=== PATIENT | female | born 1945 | race Caucasian/White ===

== ENCOUNTER 2020-08-30 12:23 | Emergency (ER) | payer OTHER, SELFPAY ==
--- NOTE | ~2020-08-30 | XR_ITS ---
XR foot RT min 3V DATE: 08/30/2020 12:43 INDICATION: Right foot injury. Fifth metatarsal pain. TECHNIQUE: 4 views COMPARISON: None FINDINGS: There is diffuse osteopenia. There is a linear oblique nondisplaced fracture through the proximal shaft of the fifth metatarsal cipriano ne. There is no angulation. No other recent fracture or dislocation. IMPRESSION: Linear nondisplaced proximal fifth metatarsal shaft fracture Reviewed, dictated and finalized at location A. OLOGY CT TECHNOLOGIST
[2020-08-30 12:31] VITALS: BP 144/65; PULSE 61; RESP 16; TEMP 36.6; O2SAT 100
[2020-08-30 12:33] VITALS: BP 144/65; PULSE 61; RESP 16; TEMP 36.6; O2SAT 100
--- NOTE | 2020-08-30 12:45 | ED.GENADULT ---
HPI - General Adult General Chief complaint: Extremity Injury, Lower Stated complaint: rt foot injury Time Seen by Provider: 08/30/20 12:45 Source: patient and RN notes reviewed Mode of arrival: wheelchair Limitations: no limitations History of Present Illness HPI narrative: 74-year-old female presents with complaints of right foot pain and swelling for 1 day. Oralia reports sitting for a period of time last night causing foot to fall asleep and when she attempted to stand to walk RT foot inverted outward and she heard a popping noise. Tylenol (last at 10:30am today) without relief. Hurts to bear weight. No radiation of pain. No numbness, tingling, or loss of mobility. Exacerbating factor applying weight. Inability to bear weight due to pain. Denies discoloration. Denies suspect foreign body. LMP hysterectomy. The patient reports she have not been diagnosed with COVID-19. The patient reports she is not waiting for the results of a COVID-19 lab test. The patient reports she do not have fever, chills, weakness, or fatigue. The patient reports she do not have a new or worsening cough or shortness of breath. Denies chest pain. The patient reports she do not have any rhinorrhea, congestion, sore throat, loss of taste, nausea, vomiting, abdominal pain, and diarrhea. Tolerating po intake well. Denies recent traveling. Denies concerns for COVID-19 or exposures been home with limited outdoor exposure except for essential household needs and return home. At this time, patient is not suspected of having COVID-19. Some parts of this dictation were generated by voice recognition software and may contain typographical and/or grammatical inaccuracies. Related Data Home Medications Medication Instructions Recorded Confirmed fluticasone furoate-vilanterol INHALATION 08/30/20 [Breo Ellipta] Allergies Allergy/AdvReac Type Severity Reaction Status Date / Time sulfamethizole Allergy Unknown Verified 08/08/19 10:05 tetracycline Allergy Unknown Verified 08/08/19 10:05 trimethoprim Allergy Unknown Verified 08/08/19 10:05 Review of Systems Review of Systems: Narrative: CONSTITUTIONAL: Denies fever, chills, sweats. EYES: Denies visual changes, redness, discharge. ENT: Denies rhinorrhea, congestion, sore throat, otalgia. CARDIOVASCULAR: Denies chest pain, palpitations, edema. RESPIRATORY: Denies dyspnea, wheezing, cough. GASTROINTESTINAL: Denies abdominal pain, nausea, vomiting, diarrhea. SKIN: Denies rash or itching. MUSCULOSKELETAL: Denies acute back pain or myalgia. Complains of pain and swelling to right foot. NEUROLOGIC: Denies numbness or focal weakness. PSYCHIATRIC: Denies anxiety or depression. All other systems reviewed are negative, except as documented in HPI and below. [facility] Past Medical History Medical History Asthma H/O: pneumonia 2013, 2019 Osteoporosis Skin lesion follows with Dr Hu Surgical History Surgical History History of bladder suspension procedure History of hernia repair (~2004) History of partial hysterectomy (~1976) Family History Family History (Updated 08/30/20 @ 17:50 by ASHLYN Britt) Father Family history of coronary artery disease Carcinoma of colon Mother , MVC No problems noted. Social History Social History (Updated 08/30/20 @ 17:51 by ASHLYN Britt) Smoking status: Former smoker Tobacco type: cigarettes Second hand tobacco smoke exposure: Yes Smoking end date: 11/04/11 Alcohol intake: current Substance use: never Living arrangements: alone Occupation/Education: retired Gender identity (if verbalized by the patient): Female Sexual Orientation (if Verbalized by the Patient): Straight or Heterosexual Comments At time of signature, agree with nurse past medical, surgical, soci
== END 2020-08-30 13:19 | disposition home or self-care (01) ==
PROVIDERS: Emergency Provider Nurse Practitioner Family; PCP Nurse Practitioner Family
DX: S92.354A Nondisplaced fracture of fifth metatarsal bone, right foot, initial encounter for closed fracture (principal); X50.9XXA Other and unspecified overexertion or strenuous movements or postures, initial encounter; Z87.891 Personal history of nicotine dependence; J45.909 Unspecified asthma, uncomplicated; M81.0 Age-related osteoporosis without current pathological fracture
CPT/HCPCS: 73630; 99214; G0463

== ENCOUNTER → 2020-11-06 12:11 | Outpatient (CLI) | payer OTHER, SELFPAY ==
--- NOTE | ~2020-11-06 | DEXA_ITS ---
Bone Density Report Name: Oralia Kenny I Age: 75 Sex: Female Ethnicity: White Date of : 1945 Indication: postmenopausal osteoporosis; height loss; asthma or emphysema; hysterectomy; Referring Provider: Hazel Hernandez Study: Bone densitometry was performed. Exam Date: November 06, 2020 Accession number: [id number] Bone Density: Region BMD T-score Z-score Classification AP Spine (L1-L4) 0.797 -2.3 0.1 Osteopenia Femoral Neck (Left) 0.470 -3.4 -1.4 Osteoporosis Total Hip (Left) 0.563 -3.1 -1.4 Osteoporosis Femoral Neck (Right) 0.468 -3.4 -1.4 Osteoporosis Total Hip (Right) 0.526 -3.4 -1.7 Osteoporosis Total Hip Mean 0.545 -3.3 -1.6 Osteoporosis World Health Organization criteria for BMD impression classify patients as: Normal (T-score at or above -1.0), Osteopenia (T-score between -1.0 and -2.5), or Osteoporosis (T-score at or below -2.5). 10-year Fracture Risk: FRAX not reported because: Some T-score for Spine Total or Hip Total or Femoral Neck at or below -2.5 Previous Exams: Region Exam Age BMD T-score BMD Change BMD Change Date g/cm2 vs Baseline vs Previous AP Spine(L1-L4) 11/06/2020 75 0.797 -2.3 0.050* 0.039* 06/15/2018 72 0.759 -2.6 0.011 0.011 02/09/2016 70 0.748 -2.7 Total Hip(Left) 11/06/2020 75 0.563 -3.1 -0.037* -0.031* 06/15/2018 72 0.594 -2.8 -0.006 -0.006 02/09/2016 70 0.600 -2.8 Total Hip(Right) 11/06/2020 75 0.526 -3.4 -0.064* -0.035* 06/15/2018 72 0.560 -3.1 -0.029* -0.029* 02/09/2016 70 0.589 -2.9 *Denotes significance at 95% confidence level, LSC for AP Spine = 0.022 g/cm2, LSC for Total Hip = 0.027 g/cm2 Clinical Information Provided by Patient: Has used the following medications: Vitamin D, Calcium Has the following medical conditions: Asthma or Emphysema, Hysterectomy Patient maximum height was 64 Menopause Age: 31 No regular weight bearing exercise Drinks caffeinated beverages Onset of menses at age 14 Number of children 2 Impression: The patient has osteoporosis, based on the Right Total Hip T-score. The BMD for the Total Hip(Left) decreased, changing by -0.031 since the last DXA exam. The BMD for the Total Hip(Right) decreased, changing by -0.035 since the last DXA exam. Discussion: INCREASED RISK OF FRACTURE. BONE DENSITY IS UNDESIRABLY LOW AT ONE OR MORE SKELETAL SITES, CON
== END ==
PROVIDERS: PCP Nurse Practitioner Family; Visit Provider Nurse Practitioner Family
DX: Z78.0 Asymptomatic menopausal state (principal); M81.0 Age-related osteoporosis without current pathological fracture; M85.88 Other specified disorders of bone density and structure, other site
CPT/HCPCS: 77080

== ENCOUNTER 2020-12-09 13:18 | Outpatient (RCR) | payer OTHER, SELFPAY ==
--- NOTE | 2020-12-09 14:40 | PTOPEVAL ---
PHYSICAL THERAPY EVALUATION AND PLAN OF CARE 12-09-20 Thank you for referring Oralia Kenny to [facility].? Oralia is doing well with her R ankle and toe active ROM and was issued a home exercise program. She is independent with her home exercises, is to do them on her own and call for an appointment if additional therapy is needed, or if she has any questions. If there is a progression in her activity level at her next follow up appointment in January, please give her a new PT script. And she will call for an appointment. Her plan of treatment is for ? 0-1 x/week for 5 weeks. Please review, sign, date and return this plan of care MILAN. I agree with and certify that the following plan of care is medically necessary. Referring Physician Date Attending Provider: Shayne Olmedo MD PT Outpatient Evaluation Document 12/09/20 13:30 MARIA (Rec: 12/09/20 14:39 MARIA [id number]) Outpatient Past Medical History Past Medical History Source of Past Medical History Recalled from Previous Visit, Confirmed with Patient/Family Neurological History Hx Neurological Disorders No Significant History Cardiovascular History Hx Cardiac Disorders No Significant History Respiratory History Hx Asthma Yes: meds Gastrointestinal History Hx Hernia Yes: surgical repair, but having more issues with abdominal hernia Musculoskeletal History Hx Other Musculoskeletal Disorders Yes: osteoporosis Endocrine History Hx Endocrine Disorders No Significant History HEENT History Hx HEENT Disorders No Significant History Other History Hx Other Medical Conditions Yes: on antibiotic for infection of teeth-to have extract next week Evaluation Information Problem Diagnosis R non displaced proximal 5th metatarsal fracture Onset 08-29-20 Subjective Information to ER on 08-30-20: non Query Text:As Reported By Patient/ surgical; wore walking boot, Family used crutches, cane and now without assistive device, wear Darco hard sole shoe; have not had any PT or exercises for ankle/foot; injury to foot on 08-29-20: stood up from sitting and her R foot was asleep and it turned and popped; immediate pain. has osteoporosis and is supposed to get a bone stimulator to make her foot heal faster; pt thought she would get
--- NOTE | 2021-01-12 11:38 | PCPTNOTE ---
Addendum entered by Cassie Bravo, PT 01/12/21 11:40: ERROR: below entered by mistake Original Note: This treatment is being continued on visit number [id number]; Please see documentation on both accounts to view progress. Completed interventions, outcomes, and problems have been marked as Inactive to facilitate the copying of the Care plan routine for recurring accounts.
--- NOTE | 2021-01-26 13:59 | PCPTNOTE ---
PHYSICAL THERAPY DISCHARGE 01-26-21 Attending Provider: Shayne Olmedo MD Patient:Oralia Kenny Date of :1945 Ms. Kenny has not returned for any further treatments since the PT evaluation on 12/09/2020, for the diagnosis of R foot pain. Therefore she will be discharged at this time. The goals were not addressed. Thank you for referring this patient to [facility]. Please review, sign, date and return this discharge summary MILAN. I have been updated about the patient's current status and I agree with discharge from the above service at this time. Referring Physician Date
== END 2021-01-27 09:02 | disposition home or self-care (01) ==
LOC: ANHPT 13:18
PROVIDERS: PCP Nurse Practitioner Family; Visit Provider Orthopaedic Surgery
DX: S92.354D Nondisplaced fracture of fifth metatarsal bone, right foot, subsequent encounter for fracture with routine healing (principal)
CPT/HCPCS: 97161

== ENCOUNTER 2020-12-25 11:54 | Outpatient (CLI) | payer OTHER, SELFPAY ==
[2020-12-25 12:46] LABS: Hemoglobin 14.7 g/dL (12.0-15.0); Mean Corpuscular Hemoglobin 30.7 pg (26-34); Mean Platelet Volume 10.3 fl (7.4-10.4); Platelet Count Result 328 k/mm3 (150-375); Red Blood Count 4.79 M/mm3 (4.2-5.4); Red Cell Distribution Width 13.4 % (11.5-14.5); White Blood Count 9.2 K/mm3 (4.5-10.0)
[2020-12-25 12:54] LABS: Alanine Aminotransferase 16 U/L (4-35); Albumin Level 3.9 g/dL (3.5-5.1); Alkaline Phosphatase 74 U/L (38-126); Anion Gap 4 mmol/L (8-16); Aspartate Amino Transferase 15 U/L (14-36); Bilirubin,Total 0.6 mg/dL (0.2-1.3); Blood Urea Nitrogen 16 mg/dL (7-17); Calcium 8.9 mg/dL (8.4-10.2); Carbon Dioxide 32 mmol/L (22-30); Chloride 103 mmol/L (98-107); Estimated Glomerular Filt Rate > 60; Glucose 95 mg/dL (65-105); Potassium 4.7 mmol/L (3.4-5.0); Sodium 139 mmol/L (137-145)
[2020-12-25 13:06] LABS: Parathyroid Intact 73.5 pg/mL (7.5-53.5)
[2020-12-25 13:12] LABS: Free T4 Free Thyroxine 1.35 ng/mL (0.78-2.19); Vitamin D 25 Hydroxy 43.4 ng/mL
[2020-12-25 13:51] LABS: Total Triiodothyronine (T3) 1.32 NG/ML (0.97-1.69)
== END 2020-12-25 11:55 | disposition home or self-care (01) ==
LOC: ANHWCLAB 11:57
PROVIDERS: PCP Nurse Practitioner Family; Visit Provider Internal Medicine Endocrinology, Diabetes & Metabolism
DX: M81.0 Age-related osteoporosis without current pathological fracture (principal); J45.30 Mild persistent asthma, uncomplicated
CPT/HCPCS: 36415; 80053; 82306; 83970; 84100; 84439; 84443; 84480; 85027

== ENCOUNTER 2021-01-26 11:25 | Emergency (ER) | payer OTHER, SELFPAY ==
[2021-01-26 11:34] VITALS: BP 148/73; PULSE 82; RESP 16; TEMP 36.9; O2SAT 97
--- NOTE | 2021-01-26 12:05 | ED.URI ---
HPI - URI/Sore Throat General Chief Complaint: Upper Respiratory Infection Stated Complaint: hoarse/mucus/cough/sore throat/chest congestion Source: patient and RN notes reviewed Limitations: no limitations History of Present Illness HPI Narrative: The patient, ex-smoker/nondrinker, presents with sore throat. Patient states she has a shorter 1 to 2-day history of chills, and definite sore throat. She has had Covid immunization; no fever measured, earache, loss of taste/smell, CP, rash, S OB, vomiting. Symptoms are mild, worse when swallowing; no hoarseness, trismus, she does have minimal cough. Related Data Home Medications Medication Instructions Recorded Confirmed cholecalciferol (vitamin D3) 50 50 mcg PO DAILY 12/25/20 12/25/20 mcg (2,000 unit) capsule multivitamin 1 tablet PO DAILY 12/25/20 01/26/21 omega-3 fatty acids 1,000 mg 1,000 mg PO DAILY 12/25/20 01/26/21 capsule Allergies Allergy/AdvReac Type Severity Reaction Status Date / Time sulfamethizole Allergy Unknown Verified 08/08/19 10:05 tetracycline Allergy Unknown Verified 08/08/19 10:05 trimethoprim Allergy Unknown Verified 08/08/19 10:05 Review of Systems Review of Systems: Narrative: The patient has been informed that they may have pre-hypertension or Hypertension based on a BP reading in the department. I recommend that the patient call the primary care provider listed on their discharge instructions or a physician of their choice this week to arrange follow up for further evaluation of possible pre-hypertension or Hypertension General/Constitutional: No weight loss,fever Eyes: N0: Redness,discharge Ears/Nose/Throat: No: Epistaxis,ear discharge Respiratory: Denies: Hemoptysis Gastrointestinal: No Vomiting, Bleeding-rectal Skin: No Lumps, eruption Neurologic: No Focal Weakness,Sz Hematologic: Denies: Petechiae/Purpura Psychiatric: No: Suicida ideationl All Other Systems: Reviewed and Negative [facility] Past Medical History Medical History Asthma H/O: pneumonia 2013, 2019 Osteoporosis Skin lesion follows with Dr Hu Surgical History Surgical History History of bladder suspension procedure History of hernia repair (~2004) History of partial hysterectomy (~1976) Family History Family History (Updated 08/30/20 @ 17:50 by ASHLYN Britt) Father Family history of coronary artery disease Carcinoma of colon Mother , MVC No problems noted. Social History Social History (Updated 08/30/20 @ 17:51 by ASHLYN Britt) Smoking status: Former smoker Tobacco type: cigarettes Second hand tobacco smoke exposure: Yes Smoking end date: 11/04/11 Alcohol intake: current Substance use: never Gender identity (if verbalized by the patient): Female Comments At time of signature, agree with nursing past medical, surgical, social and family history. There is no relevant family history pertinent to the presenting complaint Exam Narrative: Exam Narrative: General Appearance: Well appearing, Well nourished EYE: PERRLA, Conjunctiva clear Ears: Auditory canal normal, TM nl Nose: Rhinorrhea, Mucousal erythema Mouth/Throat: MM moist, Uvula midline, Pharyngeal erythema Neck: Supple, No adenopathy Respiratory: No respiratory distress, airway patent Cardiovascular: RRR, Musculoskeletal: Normal strength Skin: Warm, Dry Neurological: A&O x3, CN II-XII intact Psychiatric: Normal mood, Normal affect Course Vital Signs Vital signs: Vital Signs Temperature 98.5 F 01/26/21 11:34 Pulse Rate 82 01/26/21 11:34 Respiratory Rate 16 01/26/21 11:34 Blood Pressure 148/73 H 01/26/21 11:34 Pulse Oximetry 97 01/26/21 11:34 Temperature 98.5 F 01/26/21 11:34 Pulse Rate 82 01/26/21 11:34 Respiratory Rate 16 01/26/21 11:34 Blood Pres
== END 2021-01-26 12:22 | disposition home or self-care (01) ==
PROVIDERS: Emergency Provider Emergency Medicine; PCP Nurse Practitioner Family
DX: J02.9 Acute pharyngitis, unspecified (principal); Z87.891 Personal history of nicotine dependence; J45.909 Unspecified asthma, uncomplicated; M81.0 Age-related osteoporosis without current pathological fracture; Z90.711 Acquired absence of uterus with remaining cervical stump
CPT/HCPCS: 87081; 87880; 99213; G0463

== ENCOUNTER → 2021-01-29 07:00 | Outpatient (CLI) | payer OTHER, SELFPAY ==
[2021-01-30 14:59] LABS: SARS-CoV-2 RNA PCR Negative
== END ==
PROVIDERS: PCP Family Medicine; Visit Provider Emergency Medicine
DX: J02.9 Acute pharyngitis, unspecified (principal); Z20.822 Contact with and (suspected) exposure to COVID-19
CPT/HCPCS: C9803; U0003; U0005

== ENCOUNTER 2021-01-29 19:04 | Emergency (ER) | payer OTHER, SELFPAY ==
[2021-01-29 19:20] VITALS: BP 146/73; PULSE 79; RESP 18; TEMP 36.4; O2SAT 94
[2021-01-29] MEDS: FLUORESCEIN SOD 1 MG/STRIP (19:43)
[2021-01-29] MEDS: TETRACAINE HCL 0.5% OPHTH SOLN 4 ML BTL 2 DROP EACH EYE (19:43)
--- NOTE | 2021-01-29 20:05 | ED.EYEPROB ---
HPI - Eye Problem General Chief complaint: Eye Problems Stated complaint: ?Foreign Body R Eye Time Seen by Provider: 01/29/21 19:33 Source: patient Mode of arrival: ambulatory Limitations: no limitations History of Present Illness HPI Narrative: Patient complaining of right eye irritation and pain after something flew in my right eye while she was using a blower outside her yard. Patient denies any other pain or injuries. Related Data Home Medications Medication Instructions Recorded Confirmed cholecalciferol (vitamin D3) 50 50 mcg PO DAILY 12/25/20 12/25/20 mcg (2,000 unit) capsule multivitamin 1 tablet PO DAILY 12/25/20 01/26/21 omega-3 fatty acids 1,000 mg 1,000 mg PO DAILY 12/25/20 01/26/21 capsule Allergies Allergy/AdvReac Type Severity Reaction Status Date / Time sulfamethizole Allergy Unknown Unknown Verified 01/29/21 19:25 tetracycline Allergy Unknown Unknown Verified 01/29/21 19:25 trimethoprim Allergy Unknown Unknown Verified 01/29/21 19:25 Review of Systems Review of Systems: All systems reviewed & are unremarkable except as noted in HPI and below PMFSH Past Medical History Medical History Asthma H/O: pneumonia 2013, 2019 Osteoporosis Skin lesion follows with Dr Hu Surgical History Surgical History History of bladder suspension procedure History of hernia repair (~2004) History of partial hysterectomy (~1976) Family History Family History Father Family history of coronary artery disease Carcinoma of colon Mother , MVC No problems noted. Social History Social History Smoking status: Former smoker Tobacco type: cigarettes Second hand tobacco smoke exposure: Yes Smoking end date: 11/04/11 Alcohol intake: current Substance use: never Gender identity (if verbalized by the patient): Female Exam Const: General: no acute distress and alert Orientation/consciousness: patient oriented x3 HENMT: Head: normal to inspection and no lacerations Ears: external ears normal General nose exam: Normal external nose present, no nasal discharge noted and no epistaxis Face and sinus: normal facial exam and sinuses tender Mouth: Yes lip normal and Yes moist mucous membranes Eyes: Pupils: Equal, round and reactive pupils present EOM: EOMs intact bilaterally Other: Positive for corneal abrasion right eye Neck: Neck: normal visual inspection Resp: Effort & Inspection: normal respiratory effort Skin: General skin exam: normal color Rashes: no rashes Neuro: General: patient oriented x3 and moves all extremities Course Vital Signs Vital signs: Vital Signs Temperature 36.4 C 01/29/21 19:20 Pulse Rate 79 01/29/21 19:20 Respiratory Rate 18 01/29/21 19:20 Blood Pressure 146/73 H 01/29/21 19:20 Pulse Oximetry 94 01/29/21 19:20 Temperature 36.4 C 01/29/21 19:20 Pulse Rate 79 01/29/21 19:20 Respiratory Rate 18 01/29/21 19:20 Blood Pressure 146/73 H 01/29/21 19:20 Pulse Oximetry 94 01/29/21 19:20 MDM - Eye Problem Differential Diagnosis Differential diagnosis: Likely corneal abrasion and conjunctivitis Discharge Plan Discharge Clinical Impression: Corneal abrasion Qualifiers: Encounter type: initial encounter Laterality: right Qualified Code(s): S05.01XA - Injury of conjunctiva and corneal abrasion without foreign body, right eye, initial encounter Patient Disposition: Home, Self-Care Condition: Improved Instructions: Corneal Abrasion (DC) Prescriptions: New erythromycin 5 mg/gram (0.5 %) ointment 1 applic RIGHT EYE 6XD Qty: 3.5 RF: 0 No Action azithromycin 250 mg tablet See Rx Instructions .ROUTE .COMPLEX Qty: 6 RF: 0 Lidocaine Viscous 2 % solution
[2021-01-29] MEDS: TETANUS,DIPHTHERIA,AC PERTUSSIS ADULT (0.5 ML) BOOSTRIX IM (20:16)
[2021-01-29] MEDS: ERYTHROMYCIN OPHTH OINTMENT 1 GM TUBE 1 APPLIC EACH EYE (20:17)
== END 2021-01-29 21:06 | disposition home or self-care (01) ==
PROVIDERS: Emergency Provider Emergency Medicine; PCP Family Medicine
DX: S05.01XA Injury of conjunctiva and corneal abrasion without foreign body, right eye, initial encounter (principal); J45.909 Unspecified asthma, uncomplicated; M81.0 Age-related osteoporosis without current pathological fracture; Z87.891 Personal history of nicotine dependence; Z23 Encounter for immunization; W20.8XXA Other cause of strike by thrown, projected or falling object, initial encounter
CPT/HCPCS: 90471; 90715; 99283; A9270; C9803; U0003; U0005

== ENCOUNTER 2021-02-18 11:52 | Outpatient (CLI) | payer OTHER, SELFPAY ==
[2021-02-18 13:30] LABS: Parathyroid Intact 122.1 pg/mL (7.5-53.5)
[2021-02-18 13:36] LABS: Vitamin D 25 Hydroxy 41.1 ng/mL
== END 2021-02-18 11:53 | disposition home or self-care (01) ==
PROVIDERS: PCP Family Medicine; Visit Provider Internal Medicine Endocrinology, Diabetes & Metabolism
DX: M81.0 Age-related osteoporosis without current pathological fracture (principal); E55.9 Vitamin D deficiency, unspecified
CPT/HCPCS: 36415; 82306; 83970

== ENCOUNTER 2021-06-12 13:39 | Outpatient (CLI) | payer OTHER, SELFPAY ==
--- NOTE | 2021-06-15 11:49 | WPDPFTINT ---
PFT Procedure Performed PFT Procedure Performed Spirometry with Pre/Post Bronchodilator Plethysmography (Lung Vol) Diffusing Cap (DLCO) Flow Vol Loop PFT Interpretation This is a pulmonary function test with pre and post-bronchodilator spirometry, plethysmography and diffusing capacity. The test was performed and results interpreted in accordance with the 2019 and 2005 ATS/ERS Task Force guidelines respectively using the Global Lung Function Initiative-2012 reference equations. Patient demonstrated good effort and cooperation. Reproducibility criteria were met. The quality of the pre bronchodilator spirometry maneuver was Grade A and post bronchodilator spirometry maneuver was Grade A. Findings: Spirometry: There is decreased maximal expiratory airflow at all lung volumes with concave expiratory flow tracing. The contour the inspiratory flow tracing is normal. The pre bronchodilator FVC is 1.86 L, 74% predicted. The pre bronchodilator FEV1 is 0.78 L, 40% predicted. The FEV1: FVC ratio is 42%. The post bronchodilator FVC is 2.03 L, representing a 9% increase. The post bronchodilator FEV1 is 0.96 L, representing 180 mL increase or a 23% increase. Plethysmography: The total lung capacity is 5.30 L, 112% predicted. The functional residual capacity is 4.08 L, 151% predicted. The residual volume is 3.41 L, 158% predicted. Diffusing capacity: The absolute diffusion capacity is 9.9, 51% predicted. The diffusing capacity corrected for alveolar volume is 3.95, 92% predicted. Impression: There is a severe obstructive abnormality without significant improvement after inhaling a single dose of albuterol as the absolute increase in FEV 1 was <200 ml. The increase in residual volume is consistent with air trapping from an obstructive abnormality. Hyperinflation is present is demonstrated by the increase in functional residual capacity and is consistent with an obstructive abnormality. The absolute diffusing capacity is moderately decreased and normalizes when corrected for alveolar volume. There are no prior studies for comparison
== END 2021-06-12 13:40 | disposition home or self-care (01) ==
PROVIDERS: PCP Family Medicine; Visit Provider Internal Medicine Critical Care Medicine
DX: J45.30 Mild persistent asthma, uncomplicated (principal); R94.2 Abnormal results of pulmonary function studies
CPT/HCPCS: 94060; 94726; 94729

== ENCOUNTER → 2022-02-18 13:30 | Outpatient (CLI) | payer OTHER, SELFPAY ==
--- NOTE | ~2022-02-18 | CT_ITS ---
EXAMINATION: CT lung screening DATE: 02/18/2022 14:04 INDICATION: Personal history of tobacco dependence. Lung cancer screening. TECHNIQUE: Computed tomography (CT) of the chest was performed without intravenous contrast. The dose -length product was 104.69 mGy-cm. Automated exposure control and iterative reconstruction technique were employed. COMPARISON: None FINDINGS: Heart size normal. There is atherosclerosis of the aorta and coronary arteries. Heart size normal. Moderate size hiatal hernia. No thoracic lymphadenopathy. There are bilateral breast implants which are partially calcified. Upper abdomen is unremarkable. There is an 8 mm nodule in the left up per lobe medially, axial image 39 there is emphysema. There is a 1.4 cm lingular nodule, axial image 70. There is an irregular nodular density in the right middle lobe which has a linear configuration, most likely atelectasis/scarring. There are additional reticulonodular densities in the right middle lobe measuring 5 mm or less. There are reticulonodular densities in the right upper lobe laterally wi th tree-in-bud configuration, possibly infectious/inflammatory. No pneumothorax. No endobronchial les ions. There is mild thoracic spondylosis with accentuated kyphosis. No focal lytic or blastic lesions . IMPRESSION: 1. Lung Rads Category 4A: Recommend follow-up [address] chest or PET/CT scan for f urther assessment. Reviewed, dictated and finalized at location B. IMPRESSION: 1. Lung Rads Category 4A: Recommend follow-up 3 month interval low dose CT ches t or PET/CT scan for further assessment.
== END ==
PROVIDERS: PCP Family Medicine; Visit Provider Nurse Practitioner Family
DX: Z12.2 Encounter for screening for malignant neoplasm of respiratory organs (principal); Z87.891 Personal history of nicotine dependence
CPT/HCPCS: 71271

== ENCOUNTER 2022-06-26 23:09 | Inpatient (IN) | payer OTHER, SELFPAY ==
--- NOTE | ~2022-06-26 | XR_ITS ---
XR hip RT 2V w AP pelvis 06/27/2022 00:43 Indication: Right hip pain after fall Procedure: 3 views right hip Comparison: 05/09/2004 Findings: There is a nondisplaced right femoral intertrochanteric fracture. Normal mineralization. Mi ld osteitis pubis. Mild osteoarthritis of the hips. Impression: 1: Nondisplaced right femoral intertrochanteric fracture. Reviewed, dictated and finalized at location A. Impression: 1: Nondisplaced right femoral intertrochanteric fracture.
--- NOTE | ~2022-06-26 | XR_ITS ---
XR knee RT 3V 06/27/2022 00:43 Indication: Right knee pain after fall Procedure: 3 views right knee Comparison: 01/24/2008 Findings: There is moderate tricompartment osteoarthritis. No fracture, subluxation or dislocation. N o significant joint effusion. Osteopenia. Impression: 1: No acute fracture. Reviewed, dictated and finalized at location A. Impression: 1: No acute fracture.
--- NOTE | ~2022-06-26 | XR_ITS ---
EXAMINATION: XR surgery orthopedic DATE: 06/28/2022 18:49 INDICATION: Intertrochanteric fracture the right femur for intertrochanteric nailing TECHNIQUE: 4 fluoroscopic images of the right hip and proximal femur were obtained during procedure p erformed by Dr. Ca. Radiologist was not present for the imaging or procedure. The amount of fluo roscopy time used during this procedure was 2.6 minutes. COMPARISON: 06/26/2022 FINDINGS: Reduction and internal fixation of the previously noted intertrochanteric fracture the proximal right femur. The fracture is fixed with an antegrade intramedullary daniel with femoral neck dynamic compress ion screw and distal interlocking screw. Alignment is now essentially anatomic. No new fractures iden tified. Mild right hip osteoarthritis. IMPRESSION: 1. Essentially anatomic alignment post open reduction internal fixation of an intratrochanteric fract ure of the proximal femur. Reviewed, dictated and finalized at location A. IMPRESSION: 1. Essentially anatomic alignment post open reduction internal fixation of an i ntratrochanteric fracture of the proximal femur.
[2022-06-26 23:11] VITALS: BP 155/76; PULSE 67; RESP 18; TEMP 36.6; O2SAT 96
--- NOTE | 2022-06-26 23:50 | ED.GENADULT ---
HPI - General Adult General Chief complaint: Fall Stated complaint: GLF with Right hip pain Time Seen by Provider: 06/26/22 23:21 History of Present Illness HPI narrative: Patient is 76-year-old female who presents the emergency department with chief complaint of right hip pain. Patient reports that she was walking through her house in her flip-flops and she fell on the floor. Patient reports pain in her right hip reports that her leg is shortened and rotated. Patient denies head injury denies loss of consciousness patient denies being on any anticoagulants. Related Data Home Medications Medication Instructions Recorded Confirmed cholecalciferol (vitamin D3) 50 50 mcg PO DAILY 12/25/20 02/25/22 mcg (2,000 unit) capsule multivitamin 1 tablet PO DAILY 12/25/20 02/25/22 omega-3 fatty acids 1,000 mg 1,000 mg PO DAILY 12/25/20 02/25/22 capsule (Fish Oil Concentrate) Allergies Allergy/AdvReac Type Severity Reaction Status Date / Time sulfamethizole Allergy Mild Other Verified 02/25/22 11:45 tetracycline Allergy Mild Swelling Verified 02/25/22 11:45 of Lip/Tongue/Throat trimethoprim Allergy Unknown Other Verified 02/25/22 11:45 Review of Systems Review of Systems: A 10 system review of systems was completed on the patient and is negative except for what is stated in the HPI. Nursing and ancillary documentation was reviewed. [facility] Past Medical History Medical History Asthma Environmental allergies H/O: pneumonia 2013, 2018 Hiatal hernia with GERD without esophagitis History of tobacco abuse Hypovitaminosis D Normocalcemic primary hyperparathyroidism Osteoporosis Skin lesion follows with Dr Hu Surgical History Surgical History History of bladder suspension procedure (~2011) History of hernia repair (~2004) History of partial hysterectomy (~1976) History of repair of hiatal hernia (~2004) Family History Family History Father Family history of coronary artery disease Carcinoma of colon Mother , MVC No problems noted. Social History Social History Smoking packs per day: 1 Smoking cigarettes per day: 20.0 Years smoked: 20 Smoking pack-years: 20.00 Smoking status: Former smoker Tobacco type: cigarettes Second hand tobacco smoke exposure: Yes Smoking end date: 11/04/11 Alcohol intake: current Substance use: never Gender identity (if verbalized by the patient): Female Sexual Orientation (if Verbalized by the Patient): Straight or Heterosexual Exam Narrative: GENERAL: Well-appearing, well-nourished, and in no acute distress. HEAD: Normocephalic, atraumatic. EYES: PERRLA and EOMI. ENT: Nares clear, no rhinorrhea or epistaxis. Mucous membranes moist. NECK: Supple. CHEST: Clear to auscultation. No respiratory distress. HEART: Regular rate and rhythm. No murmur heard. Normal peripheral pulses. ABDOMEN: Soft, nontender, nondistended, normal active bowel sounds. EXTREMITIES: Decreased range of motion of the right lower extremity the leg is shortened and externally rotated. No edema. SKIN: Warm, dry, no rash. NEURO: No focal deficits. Alert and oriented x3. PSYCH: Normal mood and affect. Course Vital Signs Vital signs: Vital Signs Temperature 36.6 C 06/26/22 23:11 Pulse Rate 67 06/26/22 23:11 Respiratory Rate 18 06/26/22 23:11 Blood Pressure 155/76 H 06/26/22 23:11 Pulse Oximetry 96 06/26/22 23:11 Oxygen Delivery Room Air 06/26/22 23:11 Temperature 36.6 C 06/26/22 23:11 Pulse Rate 67 06/26/22 23:11 Respiratory Rate 18 06/26/22 23:11 Blood Pressure 155/76 H 06/26/22 23:11 Pulse Oximetry 96 06/26/22 23:11 Oxygen Delivery Room Air 06/26/22 23:1
[2022-06-26] MEDS: ONDANSETRON INJ 4 MG/2 ML VIAL IV PUSH (23:51)
[2022-06-26] MEDS: MORPHINE SULFATE (*CRX) 4 MG/ML INJ IV PUSH (23:52)
[2022-06-27 00:11] LABS: Basophils Percent Auto 0.4 % (0.2-1.2); Eosinophils Absolute Auto 0.1 K/mm3 (0-0.3); Eosinophils Percent Auto 0.9 % (0-4.4); Hematocrit 41.3 % (37.0-47.0); Hemoglobin 12.9 g/dL (12.0-15.0); Immature Granulocyte Absolute 0.06 K/mm3 (0.00-0.031); Immature Granulocyte Percent A 0.6 % (0-0.5); Lymphocytes Absolute Auto 1.87 K/mm3 (0.9-3.2); Lymphocytes Percent Auto 18.2 % (18.3-44.2); Mean Corpuscular HGB Conc 31.2 g/dl (32-36); Mean Corpuscular Hemoglobin 30.5 pg (26-34); Mean Corpuscular Volume 97.6 fl (80-100); Mean Platelet Volume 10.5 fl (7.4-10.4); Monocytes Absolute Auto 0.8 K/mm3 (0.1-0.6); Monocytes Percent Auto 7.5 % (2.6-8.5); Neutrophils Absolute Auto 7.5 K/mm3 (1.3-6.7); Neutrophils Percent Auto 72.4 % (45.5-73.1); Platelet Count Result 264 k/mm3 (150-375); Red Blood Count 4.23 M/mm3 (4.2-5.4); Red Cell Distribution Width 13.7 % (11.5-14.5); White Blood Count 10.3 K/mm3 (4.5-10.0)
[2022-06-27 00:12] LABS: Alanine Aminotransferase 18 U/L (6-35); Alkaline Phosphatase 60 U/L (38-126); Anion Gap 9 mmol/L (8-16); Aspartate Amino Transferase 15 U/L (14-36); Bilirubin,Total 0.4 mg/dL (0.2-1.3); Blood Urea Nitrogen 21 mg/dL (7-17); Calcium 8.4 mg/dL (8.4-10.2); Carbon Dioxide 30 mmol/L (22-30); Chloride 101 mmol/L (98-107); Estimated CRCL calculation 60 ml/min; Estimated Glomerular Filt Rate > 60; Glucose 114 mg/dL (65-110); Potassium 3.6 mmol/L (3.4-5.0); Sodium 140 mmol/L (137-145)
[2022-06-27] MEDS: MORPHINE SULFATE (*CRX) 4 MG/ML INJ IV PUSH ×7 (01:50→21:21)
[2022-06-27] MEDS: ONDANSETRON INJ 4 MG/2 ML VIAL IV PUSH ×3 (01:50→08:45)
[2022-06-27] MEDS: SODIUM CHLORIDE 0.9% IV 1,000 ML 125 ML IV CONT ×2 (01:50→11:15)
--- NOTE | 2022-06-27 02:00 | PC.NURSE ---
pt unable to provide urine sample at this time
[2022-06-27 02:39] LABS: SARS-CoV-2 RNA PCR Negative
[2022-06-27] MEDS: HYDROmorphone HCL INJ (*CRX) 1 MG/ML SYR IV PUSH (02:46)
--- NOTE | 2022-06-27 02:56 | PM.IMHP ---
H&P: HPI History of Present Illness Date/Time: 06/27/22 02:56 Chief Complaint: fall PMFSH Past Medical History Medical History Asthma Environmental allergies H/O: pneumonia 2013, 2019 Hiatal hernia with GERD without esophagitis History of tobacco abuse Hypovitaminosis D Normocalcemic primary hyperparathyroidism Osteoporosis Skin lesion follows with Dr Hu Surgical History Surgical History History of bladder suspension procedure (~2011) History of hernia repair (~2004) History of partial hysterectomy (~1976) History of repair of hiatal hernia (~2004) Family History Family History (Updated 06/27/22 @ 03:58 by John Pineda RN) Father Family history of coronary artery disease Carcinoma of colon Mother , MVC No problems noted. Other Breast cancer Social History Social History Smoking packs per day: 1 Smoking cigarettes per day: 20.0 Years smoked: 40 Smoking pack-years: 40.00 Smoking status: Former smoker Tobacco type: cigarettes Second hand tobacco smoke exposure: Yes Smoking end date: 11/04/11 Alcohol intake: never Substance use: never Gender identity (if verbalized by the patient): Female Sexual Orientation (if Verbalized by the Patient): Straight or Heterosexual Spiritual care concerns: No Meds Home Medications and Allergies Home Medications Medication Instructions Recorded Confirmed Type cholecalciferol (vitamin D3) 50 50 mcg PO DAILY 12/25/20 06/27/22 History mcg (2,000 unit) capsule multivitamin 1 tablet PO DAILY 12/25/20 06/27/22 History omega-3 fatty acids 1,000 mg 1,000 mg PO DAILY 12/25/20 06/27/22 History capsule (Fish Oil Concentrate) albuterol sulfate 0.63 mg/3 mL 0.63 mg (3 mL) inhalation Q4-6H 04/24/21 06/27/22 Rx solution for nebulization PRN shortness of breath or wheezing 1 month #75 mL fluticasone propionate 50 1 spray intranasal DAILY #16 grams 02/03/22 06/27/22 Rx mcg/actuation nasal spray,suspension famotidine 20 mg tablet 20 mg PO DAILY #180 tabs 02/25/22 06/27/22 Rx montelukast 10 mg tablet See Rx Instructions .Route 05/10/22 06/27/22 Rx .COMPLEX #90 tabs Allergies Allergy/AdvReac Type Severity Reaction Status Date / Time sulfamethizole Allergy Mild Other Verified 06/27/22 03:53 tetracycline Allergy Mild Swelling Verified 06/27/22 03:53 of Lip/Tongue/Throat trimethoprim Allergy Unknown Other Verified 06/27/22 03:53 Vital Signs Vital Signs - 24 hr 06/26/22 23:11 Temperature 97.8 F Pulse Rate 67 Respiratory Rate 18 Blood Pressure 155/76 H Pulse Oximetry 96 Oxygen Delivery Room Air H&P: Results Labs Labs: Short CBC 06/26/22 Range/Units 23:56 WBC 10.3 H (4.5-10.0) K/mm3 Hgb 12.9 (12.0-15.0) g/dL Hct 41.3 (37.0-47.0) % Plt Count 264 (150-375) k/mm3 BMP 06/26/22 23:56 Sodium 140 Potassium 3.6 Chloride 101 Carbon Dioxide 30 BUN 21 H Creatinine 0.70 Glucose 114 H Calcium 8.4 Liver Function 06/26/22 Range/Units 23:56 Total Bilirubin 0.4 (0.2-1.3) mg/dL AST 15 (14-36) U/L ALT 18 (6-35) U/L Alkaline Phosphatase 60 (38-126) U/L Albumin 4.0 (3.5-5.1) g/dL Assessment and Plan Assessment and plan (1) Closed intertrochanteric fracture of right femur: Code(s): S72.141A - Displaced intertrochanteric fracture of right femur, initial encounter for closed fracture Status: Acute (2) Asthma: Qualifiers: Asthma severity: mild Asthma persistence: persistent Asthma complication type: uncomplicated Qualified Code(s): J45.30 - Mild persistent asthma, uncomplicated Code(s): J45.909 - Unspecified asthma, uncomplicated Status: Acute (3) Osteoporosis: Code(s): M81.0
[2022-06-27 03:29] LABS: Appearance Urine Clear (Clear); Bilirubin Urine Negative (Negative); Color Urine Yellow (Yellow); Glucose Urine UA Negative (Negative); Ketones Urine Negative (Negative); Leukocyte Esterase Ur Negative LEU/UL (Negative); Nitrate Urine Negative (Negative); Protein Urine Negative (Negative); Specific Grav Ur >= 1.030 (1.001-1.035); Urobilinogen Urine 0.2 mg/dL (<2.0)
[2022-06-27 03:34] LABS: Mucus Urine Rare /lpf; WBC Urine 0-3 /hpf
--- NOTE | 2022-06-27 03:40 | ADMGEN ---
This patient, Oralia Kenny, was admitted to [facility] Room 322-02. Patient/family oriented to hospital policies and general routines including ID bracelet, bed and alarms, visiting hours, pain management, procedures, bathroom and other care routines, personal items, smoking policy, room service/diet, and visiting hours. Information on how to activate the Rapid Response Team has been discussed. Patient/Family are encouraged to report perceived risks to care and to ask questions if they do not understand what they are told or what they should do.
[2022-06-27 03:49] VITALS: BP 109/54; PULSE 67; RESP 20; TEMP 36.5; O2SAT 96; BMI 34.2
[2022-06-27 03:53] LABS: Add Urine Microscopic? YES; Blood Urine Trace (Negative)
[2022-06-27 06:00] VITALS: BP 109/56; PULSE 60; RESP 20; TEMP 36.4; O2SAT 98
--- OUTSIDE RECORDS SUMMARY | 2022-06-27 08:54 | XMS_ITS ---
:1945 Author Care Team Providers Name Role Phone DR. FRANCISCO RYAN Primary Care Provider [phone] FRANCISCO RYAN Referring Provider [phone] Allergies Code Code System Name Reaction Severity Status Onset 53102 RxNorm Tetracycline ? ? Active ? Medications Name Status Start Date Stop Date ? ? acetaminophen 300 mg-codeine 30 mg tablet Completed ? 02/18/2021 TAKE 1 TO 2 TABLETS BY MOUTH EVERY 4 TO 6 HOURS NEEDED NO MORE THAN 10 TABLETS PER DAY albuterol sulfate 2.5 mg/3 mL (0.083 %) solution for nebulizatio n Completed ? 10/06/2020 Inhale 3 mL 3 times a day by nebulization route. albuterol sulfate HFA 90 mcg/actuation aerosol Active ? Not available inhaler alendronate 70 mg tablet Completed ? 021 TAKE 1 TABLET BY MOUTH ONCE WEEKLY azithromycin 250 mg tablet Completed ? 02/18 Breo Ellipta 100 mcg-25 mcg/dose powder for Active ? Not available inhalation cephalexin 500 mg capsule Completed ? 2020 TAKE 1 CAPSULE BY MOUTH EVERY 6 HOURS ergocalciferol (vitamin D2) 1,250 mcg (50,000 unit) capsule Comp leted ? 01/02/2021 TAKE 1 CAPSULE BY MOUTH ONE TIME PER WEEK erythromycin 5 mg/gram (0.5 %) eye ointment Completed ? 02/18/2021 Fluzone High-Dose 2014-15 (PF) 180 mcg/0.5 mL intramuscular syri nge Unknown ? Not available TO BE ADMINISTERED BY PHARMACIST FOR IMMUNIZATION Fluzone High-Dose Quad 2019- (PF) 240 mcg/0.7 mL IM syringe Co mpleted ? 11/07/2020 PHARMACY ADMINISTERED ibuprofen 600 mg tablet Active ? Not avai lable TAKE 1 TABLET BY MOUTH FOUR TIMES DAILY NEEDED FOR PAIN ipratropium bromide 0.02 % solu
--- OUTSIDE RECORDS SUMMARY | 2022-06-27 08:54 | XMS_ITS ---
:1945 Author Care Team Providers Name Role Phone DR. FRANCISCO RYAN Primary Care Provider [phone] FRANCISCO RYAN Referring Provider [phone] Allergies Code Code System Name Reaction Severity Status Onset 68790 RxNorm Tetracycline ? ? Active ? Medications Name Status Start Date Stop Date ? ? albuterol sulfate 2.5 mg/3 mL (0.083 %) solution for nebulizatio n Completed ? 10/06/2020 Inhale 3 mL 3 times a day by nebulization route. albuterol sulfate HFA 90 mcg/actuation aerosol inhaler Active ? Not available Breo Ellipta 100 mcg-25 mcg/dose powder for inhalation Completed ? 10/24/2020 ergocalciferol (vitamin D2) 1,250 mcg (50,000 unit) capsule Acti ve ? Not available TAKE 1 CAPSULE BY MOUTH ONE TIME PER WEEK Fluzone High-Dose (PF) 180 mcg/0.5 mL intramuscular syri nge Unknown ? Not available TO BE ADMINISTERED BY PHARMACIST FOR IMMUNIZATION Fluzone High-Dose Quad (PF) 240 mcg/0.7 mL IM syringe Co mpleted ? 11/07/2020 PHARMACY ADMINISTERED ibuprofen 600 mg tablet Completed ? 11/07/19 21 Mucinex Completed ? 09/03/2020 Pneumovax-23 25 mcg/0.5 mL injection syringe Completed ? 11/07/2020 Problems Name Status Onset Date Source ? Pneumonia Active ? Encounter Bronchitis Active ? Encounter Procedures Date Name Performed by ? 10/03/2010 Kidney/Bladder Surgery Information not a vailable 10/03/2002 Hernia Repair Information not avai lable 09/01/2014 X-ray, Chest, 2 View [facility] (Imaging) [address] [place], [place] [address] ([address])
--- NOTE | 2022-06-27 12:19 | PM.IMPN ---
Progress Note: A&P Assessment and Plan (1) Closed intertrochanteric fracture of right femur: Code(s): S72.141A - Displaced intertrochanteric fracture of right femur, initial encounter for closed fracture Status: Acute Assessment and Plan: - p.r.n. pain control - p.r.n. antiemetics - complete bedrest - fall precautions - consult orthopedic surgery - maintain NPO status - IV fluids of normal saline at 125 mL/hour - maintain Savage catheter to gravity - monitor labs and vital sign (2) Asthma: Qualifiers: Asthma severity: mild Asthma persistence: persistent Asthma complication type: uncomplicated Qualified Code(s): J45.30 - Mild persistent asthma, uncomplicated Code(s): J45.909 - Unspecified asthma, uncomplicated Status: Acute Assessment and Plan: - p.r.n. albuterol (3) Osteoporosis: Code(s): M81.0 - Age-related osteoporosis without current pathological fracture Status: Acute Assessment and Plan: - likely contributing factor to Her acute fracture today. - Continue vitamin-D (4) Hiatal hernia with GERD without esophagitis: Code(s): K44.9 - Diaphragmatic hernia without obstruction or gangrene; K21.9 - Gastro-esophageal reflux disease without esophagitis Status: Acute Assessment and Plan: - continue Pepcid when no longer NPO. - Add Protonix IV. Time Spent With Patient Time with patient: 15 - 25 minutes Subjective Date/time seen: 06/27/22 1015 This patient was examined at the bedside today in interval assessment following admission to the hospital after sustaining a ground level fall at home that was mechanical in nature as she was wearing flip-flops through her home and tripped on the edge of a rug that was on her hardwood floor. She denies any head injury in the fall and did not have any loss of consciousness, however in the fall she sustained a fracture of the right hip. Workup in the ED was significant for a nondisplaced right femoral inter trochanteric fracture. She was admitted to the hospital for pain control and expert orthopedic surgery consult for definitive plan of care development. Currently the patient is in exquisite pain. The pain is of its highest intensity in the right groin. She is nauseated requiring the addition of a 2nd antiemetic medication. She has no chest pain, dyspnea, diarrhea, headache, lightheadedness, dizziness. We are awaiting the evaluation and recommendations of Orthopedic surgery. She is NPO. Review of Systems Review of Systems: All systems reviewed & are unremarkable except as noted in HPI and below Exam Const: General: in distress ( Secondary to pain) severe Other: 76-year-old female lying supine in bed at this time in a great amount of pain. HENMT: General nose exam: Normal nares present Mouth: Yes dry mucous membranes Eyes: General: appearance normal, both eyes and all related structures Sclera: sclerae normal Pupils: Equal, round and reactive pupils present EOM: EOMs intact bilaterally Neck: Neck: supple and no JVD Carotids: no bruits Lymphatic: lymphadenopathy not noted Resp: Effort & Inspection: normal respiratory effort Auscultation: clear to auscultation bilaterally Cardio: Rate: regular rate Rhythm: regular rhythm Heart sounds: no gallops, no murmurs and no rubs GI: Inspection: non-distended GI Palp: Yes Soft to palpation, No Tenderness to palpation present (GI), No Guarding due to palpation present (GI) and No Hernia present Auscultation: normal bowel sounds Skin: General skin exam: normal color, no rashes or lesions noted and no erythema Lesions: no lesions noted Rashes: no rashes noted Wounds: no wounds Neuro: General: No gait normal ( Unable to test secondary to patient's acute injury.) and No deep tendon reflexes 2+ bilaterally ( Testing deferred) Speech: normal speech Motor exam (neuro): strength not 5/5 throughout ( weakness in the right lo
[2022-06-27] MEDS: PROCHLORPERAZINE EDISYLATE 10 MG/2 ML VIAL IV PUSH (13:32)
--- NOTE | 2022-06-27 14:09 | PM.CNOR ---
Assessment and Plan Assessment and plan (1) Closed intertrochanteric fracture of right femur: Code(s): S72.141A - Displaced intertrochanteric fracture of right femur, initial encounter for closed fracture Status: Acute Assessment and Plan: JH IS HERE FOR HER RIGHT INTERTROCHANTERIC FEMUR FRACTURE. SHE HAS NO OTHER COMPLAINTS. SHE WILL REQUIRE INSERTION OF INTRAMEDULLARY NATALIE WITH DYNAMIC HIP SCREW. DISCUSSED NONOPERATIVE AND OPERATIVE TREATMENT OPTIONS WITH THE PATIENT. THE PATIENT'S QUESTIONS WERE ANSWERED. THE PATIENT DESIRES OPERATIVE TREATMENT RISKS OF SURGERY INCLUDING BUT NOT LIMITED TO NEUROVASCULAR DAMAGE, WOUND COMPLICATIONS, BLOOD CLOT, PULMONARY EMBOLUS, STROKE, FL, ANESTHETIC RISKS UP TO AND INCLUDING WERE REVIEWED. CONTINUED PAIN AND POSSIBLE DYSFUNCTION WERE EXPLAINED. NO GUARANTEES WERE OFFERED. THE PATIENT UNDERSTANDS AND WISHES TO PROCEED. History of Present Illness HPI Consult date: 06/27/22 Chief complaint: Right intertrochanteric femur fracture Narrative: JH WAS GETTING OUT OF CHAIR AND SLIPPED FALLING ON TO HER RIGHT HIP. SHE NOW HAS A RIGHT INTERTROCHANTERIC FEMUR FRACTURE. SHE C/O ONLY OF RIGHT HIP PAIN. SHE DENIES ANY OTHER EXTREMITY PAIN, BACK OR NECK PAIN. Review of Systems Constitutional: Constitutional: Reports no additional constitutional complaints Cardiovascular: Cardiovascular: Reports no additional cardiovascular complaints Respiratory: Respiratory: Reports no additional respiratory complaints Gastrointestinal: Gastrointestinal: Reports no additional gastrointestinal complaints Genitourinary: Genitourinary: Reports no additional female genitourinary complaints Neurologic: Reports system reviewed and no additional complaints, except as documented Psychiatric: Psychiatric: Reports no additional psychiatric complaints [facility] Past Medical History Medical History Asthma Environmental allergies H/O: pneumonia 2013, 2018 Hiatal hernia with GERD without esophagitis History of tobacco abuse Hypovitaminosis D Normocalcemic primary hyperparathyroidism Osteoporosis Skin lesion follows with Dr Hu Surgical History Surgical History History of bladder suspension procedure (~2011) History of hernia repair (~2004) History of partial hysterectomy (~1976) History of repair of hiatal hernia (~2004) Family History Family History Father Family history of coronary artery disease Carcinoma of colon Mother , MVC No problems noted. Other Breast cancer Social History Social History Smoking packs per day: 1 Smoking cigarettes per day: 20.0 Years smoked: 40 Smoking pack-years: 40.00 Smoking status: Former smoker Tobacco type: cigarettes Second hand tobacco smoke exposure: Yes Smoking end date: 11/04/11 Alcohol intake: never Substance use: never Gender identity (if verbalized by the patient): Female Sexual Orientation (if Verbalized by the Patient): Straight or Heterosexual Spiritual care concerns: No Meds Home Medications and Allergies Home Medications Medication Instructions Recorded Confirmed Type cholecalciferol (vitamin D3) 50 50 mcg PO DAILY 12/25/20 06/27/22 History mcg (2,000 unit) capsule multivitamin 1 tablet PO DAILY 12/25/20 06/27/22 History omega-3 fatty acids 1,000 mg 1,000 mg PO DAILY 12/25/20 06/27/22 History capsule (Fish Oil Concentrate) albuterol sulfate 0.63 mg/3 mL 0.63 mg (3 mL) inhalation Q4-6H 04/24/21 06/27/22 Rx solution for nebulization PRN shortness of breath or wheezing 1 month #75 mL fluticasone propionate 50 1 spray intranasal DAILY #16 grams 02/03/22 06/27/22 Rx mcg/actuation nasal spray,suspension famotidine 20 mg tablet 20 mg
[2022-06-27 14:35] VITALS: BP 126/49; PULSE 64; RESP 14; TEMP 36.3; O2SAT 100
[2022-06-27] MEDS: CHOLECALCIFEROL 1,000 UNITS TABLET 2000 UNITS PO (15:35)
[2022-06-27] MEDS: MULTIVITAMINS THERAPEUTIC TAB (*BKC) 1 TABLET PO (15:36)
[2022-06-27] MEDS: FAMOTIDINE 20 MG TABLET PO (15:36)
[2022-06-27] MEDS: OMEGA 3 POLYUNSAT FATTY ACIDS 1 GM CAP PO (15:36)
[2022-06-27 16:59] VITALS: BP 117/58; PULSE 52; RESP 12; TEMP 36.4; O2SAT 98
[2022-06-27 20:56] VITALS: BP 134/50; PULSE 67; RESP 12; TEMP 36.6; O2SAT 100
[2022-06-27] MEDS: PANTOPRAZOLE SODIUM IV 40 MG VIAL IV PUSH (21:20)
[2022-06-27] MEDS: MONTELUKAST SODIUM 10 MG TABLET BY MOUTH (21:20)
[2022-06-28] VITALS (15 sets, daily range): BP systolic 120–173; BP diastolic 51–103; PULSE 66–86; RESP 14–22; TEMP 36.3–37.2; O2SAT 89–100
[2022-06-28] MEDS: SODIUM CHLORIDE 0.9% IV 1,000 ML 125 ML IV CONT ×2 (02:15→13:21)
[2022-06-28 07:36] LABS: Basophils Percent Auto 0.2 % (0.2-1.2); Eosinophils Absolute Auto 0.1 K/mm3 (0-0.3); Eosinophils Percent Auto 0.7 % (0-4.4); Hematocrit 36.9 % (37.0-47.0); Hemoglobin 11.6 g/dL (12.0-15.0); Immature Granulocyte Absolute 0.04 K/mm3 (0.00-0.031); Immature Granulocyte Percent A 0.4 % (0-0.5); Lymphocytes Absolute Auto 1.42 K/mm3 (0.9-3.2); Lymphocytes Percent Auto 13.3 % (18.3-44.2); Mean Corpuscular HGB Conc 31.4 g/dl (32-36); Mean Corpuscular Hemoglobin 30.5 pg (26-34); Mean Corpuscular Volume 97.1 fl (80-100); Mean Platelet Volume 10.8 fl (7.4-10.4); Monocytes Absolute Auto 0.8 K/mm3 (0.1-0.6); Monocytes Percent Auto 7.6 % (2.6-8.5); Neutrophils Absolute Auto 8.3 K/mm3 (1.3-6.7); Neutrophils Percent Auto 77.8 % (45.5-73.1); Platelet Count Result 192 k/mm3 (150-375); Red Cell Distribution Width 13.7 % (11.5-14.5); White Blood Count 10.7 K/mm3 (4.5-10.0)
[2022-06-28 07:50] LABS: Alanine Aminotransferase 15 U/L (6-35); Albumin Level 3.2 g/dL (3.5-5.1); Alkaline Phosphatase 55 U/L (38-126); Anion Gap 10 mmol/L (8-16); Aspartate Amino Transferase 11 U/L (14-36); Bilirubin,Total 0.8 mg/dL (0.2-1.3); Blood Urea Nitrogen 8 mg/dL (7-17); Calcium 7.8 mg/dL (8.4-10.2); Carbon Dioxide 27 mmol/L (22-30); Chloride 99 mmol/L (98-107); Estimated CRCL calculation 72 ml/min; Estimated Glomerular Filt Rate > 60; Glucose 104 mg/dL (65-110); Magnesium 1.7 mg/dL (1.6-2.3); Potassium 3.6 mmol/L (3.4-5.0); Sodium 136 mmol/L (137-145)
[2022-06-28] MEDS: FAMOTIDINE 20 MG TABLET PO (08:38)
[2022-06-28] MEDS: OMEGA 3 POLYUNSAT FATTY ACIDS 1 GM CAP PO (08:38)
[2022-06-28] MEDS: CHOLECALCIFEROL 1,000 UNITS TABLET 2000 UNITS PO (08:38)
[2022-06-28] MEDS: FLUTICASONE PROPIONATE 0.05% NA SPR 16 GM BTL (*BKC) 1 SPRAY NASAL (08:39)
[2022-06-28] MEDS: PANTOPRAZOLE SODIUM IV 40 MG VIAL IV PUSH (08:41)
[2022-06-28] MEDS: ALBUTEROL SULFATE NEB 2.5 MG/3 ML INH 1.25 MG INHALATION (09:07)
[2022-06-28] MEDS: MORPHINE SULFATE (*CRX) 4 MG/ML INJ IV PUSH (10:38)
--- NOTE | 2022-06-28 12:56 | PM.IMPN ---
Progress Note: A&P Assessment and Plan (1) Closed intertrochanteric fracture of right femur: Code(s): S72.141A - Displaced intertrochanteric fracture of right femur, initial encounter for closed fracture Status: Acute Assessment and Plan: - p.r.n. pain control - p.r.n. antiemetics - complete bedrest - fall precautions - consult orthopedic surgery - maintain NPO status - IV fluids of normal saline at 125 mL/hour - maintain Savage catheter to gravity - monitor labs and vital sign (2) Asthma: Qualifiers: Asthma severity: mild Asthma persistence: persistent Asthma complication type: uncomplicated Qualified Code(s): J45.30 - Mild persistent asthma, uncomplicated Code(s): J45.909 - Unspecified asthma, uncomplicated Status: Acute Assessment and Plan: - p.r.n. albuterol (3) Osteoporosis: Code(s): M81.0 - Age-related osteoporosis without current pathological fracture Status: Acute Assessment and Plan: - likely contributing factor to Her acute fracture today. - Continue vitamin-D (4) Hiatal hernia with GERD without esophagitis: Code(s): K44.9 - Diaphragmatic hernia without obstruction or gangrene; K21.9 - Gastro-esophageal reflux disease without esophagitis Status: Acute Assessment and Plan: - continue Pepcid when no longer NPO. - Add Protonix IV. Time Spent With Patient Time with patient: 15 - 25 minutes Subjective Date/time seen: 06/28/22 1115 This pt. was examined at the bedside today in interval assessment. She is going for repair of her right hip fracture today. She has no further nausea stating the addition of the Compazine helped and she has pain under control currently. No new symptoms to report such as CP, dyspnea. OR is this afternoon. Review of Systems Review of Systems: All systems reviewed & are unremarkable except as noted in HPI and below Exam Const: General: comfortable Other: 76-year-old female lying supine in bed at this time . HENMT: General nose exam: Normal nares present Mouth: Yes dry mucous membranes Eyes: General: appearance normal, both eyes and all related structures Sclera: sclerae normal Pupils: Equal, round and reactive pupils present EOM: EOMs intact bilaterally Neck: Neck: supple and no JVD Carotids: no bruits Lymphatic: lymphadenopathy not noted Resp: Effort & Inspection: normal respiratory effort Auscultation: clear to auscultation bilaterally Cardio: Rate: regular rate Rhythm: regular rhythm Heart sounds: no gallops, no murmurs and no rubs GI: Inspection: non-distended Auscultation: normal bowel sounds Skin: General skin exam: normal color, no rashes or lesions noted and no erythema Lesions: no lesions noted Rashes: no rashes noted Wounds: no wounds Neuro: General: No gait normal ( Unable to test secondary to patient's acute injury.) and No deep tendon reflexes 2+ bilaterally ( Testing deferred) Cranial nerves: Yes Equal, round and reactive pupils present Speech: normal speech Motor exam (neuro): strength not 5/5 throughout ( weakness in the right lower extremity secondary to her acute injury.) and Abnormal motor strength present ( As noted secondary to her acute right lower extremity injury.) Sensory Exam: normal sensation Extrem: General: abnormal to inspection ( Right lower extremity is externally rotated and shorter than the left.), no edema and no pedal edema Psych: Mental Status: mental status grossly normal Affect: Anxious affect present Objective Data Vital Signs Vital Signs: Vital Signs - 24 hr 06/27/22 14:35 06/27/22 16:59 06/27/22 20:56 Temperature 97.3 F L 97.6 F 98 F Pulse Rate 64 52 L 67 Respiratory Rate 14 12 12 Blood Pressure 126/49 L 117/58 L 134/50 L Pulse Oximetry 100 98 100 Oxygen Delivery 06/27/22 20:00 06/28/22 06:00 06/28/22 08:00 Temperature 98 F 97.4 F L Pulse Rate 86 68 Respiratory Rate 14 22 H Blood Pres
--- NOTE | 2022-06-28 15:06 | WPDHPUPDATE1 ---
History and Physical Update Update Date/Time: 06/28/22 15:06 History and Physical has been reviewed, including an updated exam of the patient. There are NO changes in the patient's condition. Risks, benefits, and alternatives have been discussed and questions answered. Patient agrees to proceed with procedure.
--- NOTE | 2022-06-28 17:02 | WPDANESEPPF ---
Anes - Initial Pre Proc Eval Procedure: Operation Date: 06/28/22 17:00 Proposed Procedures p Right Intertrochanteric Nail - iLncoln Ca MD Date/Time: 06/28/22 17:02 Surgeon: IZA Pinto Pre Op Diagnosis: Right intertrochanteric femur fracture Patient Data Age: 76 Gender: F Height: 1.6 m Weight: 87.7 kg Last Vital Signs Temp 36.3 C L 06/28/22 16:30 Pulse 66 06/28/22 16:30 Resp 16 06/28/22 16:30 BP 138/56 L 06/28/22 16:30 Pulse Ox 98 06/28/22 16:30 O2 Del Method Nasal Cannula 06/28/22 16:30 O2 Flow Rate 2 06/28/22 16:30 Allergies Allergy/AdvReac Type Severity Reaction Status Date / Time sulfamethizole Allergy Mild Other Verified 06/27/22 03:53 tetracycline Allergy Mild Swelling Verified 06/27/22 03:53 of Lip/Tongue/Throat trimethoprim Allergy Unknown Other Verified 06/27/22 03:53 Home Medications Medication Instructions Recorded Confirmed Type cholecalciferol (vitamin D3) 50 50 mcg PO DAILY 12/25/20 06/27/22 History mcg (2,000 unit) capsule multivitamin 1 tablet PO DAILY 12/25/20 06/27/22 History omega-3 fatty acids 1,000 mg 1,000 mg PO DAILY 12/25/20 06/27/22 History capsule (Fish Oil Concentrate) albuterol sulfate 0.63 mg/3 mL 0.63 mg (3 mL) inhalation Q4-6H 04/24/21 06/27/22 Rx solution for nebulization PRN shortness of breath or wheezing 1 month #75 mL fluticasone propionate 50 1 spray intranasal DAILY #16 grams 02/03/22 06/27/22 Rx mcg/actuation nasal spray,suspension famotidine 20 mg tablet 20 mg PO DAILY #180 tabs 02/25/22 06/27/22 Rx montelukast 10 mg tablet See Rx Instructions .Route 05/10/22 06/27/22 Rx .COMPLEX #90 tabs Laboratory Tests 06/28/22 06/28/22 06:57 06:57 WBC 10.7 K/mm3 H K/mm3 (4.5-10.0) RBC 3.80 M/mm3 L M/mm3 (4.2-5.4) Hgb 11.6 g/dL L g/dL (12.0-15.0) Hct 36.9 % L % (37.0-47.0) MCV 97.1 fl fl (80-100) MCH 30.5 pg pg (26-34) MCHC 31.4 g/dl L g/dl (32-36) RDW 13.7 % % (11.5-14.5) Plt Count 192 k/mm3 k/mm3 (150-375) MPV 10.8 fl H fl (7.4-10.4) Immature Gran % (Auto) 0.4 % % (0-0.5) Neut % (Auto) 77.8 % H % (45.5-73.1) Lymph % (Auto) 13.3 % L % (18.3-44.2) Caroline % (Auto) 7.6 % % (2.6-8.5) Eos % (Auto) 0.7 % % (0-4.4) Baso % (Auto) 0.2 % % (0.2-1.2) Lymph # (Auto) 1.42 K/mm3 K/mm3 (0.9-3.2) Caroline # (Auto) 0.8 K/mm3 H K/mm3 (0.1-0.6) Eos # (Auto) 0.1 K/mm3 K/mm3 (0-0.3) Baso # (Auto) 0.0 K/mm3 K/mm3 (0.0-0.1) Abs Immat Gran (auto) 0.04 K/mm3 H K/mm3 (0.00-0.031) Absolute Neuts (auto) 8.3 K/mm3 H K/mm3 (1.3-6.7) Absolute Nucleated RBC 0.0 K/mm3 K/mm3 (0.0-0.012) Nucleated RBC % 0.0 % % (0.0-0.2) Sodium 136 mmol/L L mmol/L (137-145) Potassium 3.6 mmol/L mmol/L (3.4-5.0) Chloride 99 mmol/L mmol/L (98-107) Carbon Dioxide 27 mmol/L mmol/L (22-30) Anion Gap 10 mmol/L mmol/L (8-16) BUN 8 mg/dL D mg/dL (7-17) Creatinine 0.60 mg/dL L mg/dL (0.7-1.0) Estim Creat Clear Calc 72 ml/min ml/min Estimated GFR > 60 (59 - ) Glucose 104 mg/dL mg/dL (65-110) Calcium 7.8 mg/dL L mg/dL (8.4-10.2) Magnesium 1.7 mg/dL mg/dL (1.6-2.3) Total Bilirubin 0.8 mg/dL mg/dL (0.2-1.3) AST 11 U/L L U/L (14-36) ALT 15 U/L U/L (6-35) Alkaline Phosphatase 55 U/L U/L (38-126) Total Protein 6.0 g/dL L g/dL (6.3-8.2) Albumin 3.2 g/dL L g/dL (3.5-5.1) Patient hx anesthesia problems: none Family hx anesthesia problems: none Results Review: All pre-operative results and documents have been reviewed as part of the pre-operative evaluation. [facility] Past Medical History Medical History Asthma Environmental aller
[2022-06-28] MEDS: TRANEXAMIC ACID 1,000MG/ISO100 1,000 MG/100 ML BAG 200 MG IVPB (17:07)
[2022-06-28] MEDS: LACTATED RINGERS 1,000 ML 30 ML IV CONT (17:07)
[2022-06-28] MEDS: ceFAZolin 2 GM/D5W 50 ML 2 GM/50 ML BAG IVPB ×2 (18:00→21:57)
--- NOTE | 2022-06-28 18:51 | W.PM.PROC2 ---
Procedure Note - Detailed Date of Procedure 06/28/22 Pre-op Diagnosis Right intertrochanteric femur fracture Post-op Diagnosis Same Procedure Performed INSERTION TROCHANTERIC NATALIE RIGHT HIP Surgeon Lincoln Ca MD Anesthesia General Description of Procedure THE PATIENT WAS TAKEN TO THE OPERATING ROOM AND PLACED ON A FRACTURE TABLE AFTER GIVEN GENERAL ANESTHESIA. THE RIGHT LOWER EXTREMITY WAS PLACED IN A TRACTION BOOT AND USING SOME TRACTION AND INTERNAL ROTATION THE INNER TROCHANTERIC FRACTURE WAS REDUCED TO ANATOMIC POSITION. NEXT THE LEFT LOWER EXTREMITY WAS PREPPED AND DRAPED IN THE STERILE FASHION. AN INCISION WAS MADE PROXIMAL TO THE TIP OF THE GREATER TROCHANTER AND DISSECTION CONTINUED TILL THE TIP OF THE GREATER TROCHANTER WAS PALPATED. A GUIDE PIN WAS PLACED DOWN THE FEMORAL CANAL AND PAST THE FRACTURE SITE. THIS WAS CHECKED ON FLUOROSCOPY AND FOUND TO BE IN GOOD POSITION. AN INITIAL REAMER WAS USED TO REAM THE FEMORAL CANAL. A 11 BY 200 MM ARTHREX NATALIE WAS INSERTED TILL THE CORRECT POSITION WAS IDENTIFIED ON XRAY. A GUIDE PIN WAS INSERTED THROUGH THE FEMORAL NECK AT 125 DE[address] ANGLE TILL IT REACHED THE TIP OF THE SUB CHONDRAL BONE SEEN ON XRAY. AFTER REAMING, LAG SCREW WAS INSERTED MEASURING 100 MM. XRAYS SHOWED IT TO BE IN GOOD POSITION. THE LAG SCREW WAS LOCKED PROXIMALLY WITH A LOCKING BOLT. NEXT A DISTAL LOCKING SCREW WAS PLACED ACROSS THE NATALIE AND WAS IN GOOD POSITION ON XRAY. THE TRACTION WAS RELEASED. THE WOUNDS WERE WASHED. THE DEEP FASCIA WAS REPAIRED WITH 0 VICRYL SUTURE, THE SUB CUTANEOUS LAYER WITH 2-0 VICRYL, AND THE SKIN WITH DEBBIE. THE WOUNDS WERE WASHED AND THEN STERILE DRESSING WAS APPLIED. PATIENT WAS EXTUBATED AND SENT TO RECOVERY ROOM. Estimated Blood Loss 100 Urine Output 500 Complications No immediate complications Condition Stable Disposition PACU
[2022-06-28] MEDS: fentaNYL CITRATE INJ (*CRX) 100 MCG/2 ML VIAL 25 MCG IV PUSH ×2 (19:05→19:24)
[2022-06-28] MEDS: SENNA/DOCUSATE SODIUM TABLET 2 TAB PO (20:42)
[2022-06-28] MEDS: MONTELUKAST SODIUM 10 MG TABLET BY MOUTH (20:42)
[2022-06-28] MEDS: HYDROcodone/acetaminophen (*CRX) 7.5-325 MG TABLET 1 TAB PO (21:15)
[2022-06-28] MEDS: MORPHINE SULFATE (*CRX) 4 MG/ML INJ 3 MG IV PUSH (22:14)
[2022-06-29] VITALS (8 sets, daily range): BP systolic 111–143; BP diastolic 54–66; PULSE 57–75; RESP 16–22; TEMP 36.2–37; O2SAT 93–99
[2022-06-29] MEDS: HYDROcodone/acetaminophen (*CRX) 7.5-325 MG TABLET 1 TAB PO ×3 (00:40→19:09)
[2022-06-29] MEDS: ceFAZolin 2 GM/D5W 50 ML 2 GM/50 ML BAG IVPB ×2 (05:05→14:19)
[2022-06-29 05:59] LABS: Basophils Percent Auto 0.1 % (0.2-1.2); Hematocrit 36.7 % (37.0-47.0); Hemoglobin 11.4 g/dL (12.0-15.0); Immature Granulocyte Absolute 0.04 K/mm3 (0.00-0.031); Immature Granulocyte Percent A 0.4 % (0-0.5); Lymphocytes Absolute Auto 0.95 K/mm3 (0.9-3.2); Lymphocytes Percent Auto 8.8 % (18.3-44.2); Mean Corpuscular HGB Conc 31.1 g/dl (32-36); Mean Corpuscular Hemoglobin 30.3 pg (26-34); Mean Corpuscular Volume 97.6 fl (80-100); Mean Platelet Volume 10.6 fl (7.4-10.4); Monocytes Absolute Auto 0.8 K/mm3 (0.1-0.6); Monocytes Percent Auto 7.5 % (2.6-8.5); Neutrophils Percent Auto 83.2 % (45.5-73.1); Platelet Count Result 181 k/mm3 (150-375); Red Blood Count 3.76 M/mm3 (4.2-5.4); Red Cell Distribution Width 13.3 % (11.5-14.5); White Blood Count 10.8 K/mm3 (4.5-10.0)
[2022-06-29 06:26] LABS: Anion Gap 8 mmol/L (8-16); Blood Urea Nitrogen 8 mg/dL (7-17); Calcium 7.9 mg/dL (8.4-10.2); Carbon Dioxide 26 mmol/L (22-30); Chloride 102 mmol/L (98-107); Estimated CRCL calculation 85 ml/min; Estimated Glomerular Filt Rate > 60; Glucose 121 mg/dL (65-110); Potassium 3.8 mmol/L (3.4-5.0); Sodium 136 mmol/L (137-145)
[2022-06-29] MEDS: MORPHINE SULFATE (*CRX) 4 MG/ML INJ 3 MG IV PUSH ×3 (08:22→22:59)
[2022-06-29] MEDS: polyethylene glycoL 3350 17 GM POWD.PACK PO (09:45)
[2022-06-29] MEDS: FLUTICASONE PROPIONATE 0.05% NA SPR 16 GM BTL (*BKC) 1 SPRAY NASAL (09:46)
[2022-06-29] MEDS: FAMOTIDINE 20 MG TABLET PO (09:46)
[2022-06-29] MEDS: CHOLECALCIFEROL 1,000 UNITS TABLET 2000 UNITS PO (09:46)
[2022-06-29] MEDS: CELECOXIB 200 MG CAPSULE PO (09:46)
[2022-06-29] MEDS: SENNA/DOCUSATE SODIUM TABLET 2 TAB PO ×2 (09:46→18:54)
--- NOTE | 2022-06-29 10:13 | PM.PNORT ---
Progress Note: A&P Assessment and Plan (1) Closed intertrochanteric fracture of right femur: Code(s): S72.141A - Displaced intertrochanteric fracture of right femur, initial encounter for closed fracture Status: Acute Assessment and Plan: POD #1 Continue PT/OT. TTWB. Walker. HIGH FALL RISK. Continue pain control. Ice Hip. Protect skin. DVT prophylaxis with Xarelto per . SCDs. Incentive Spirometry Use reviewed. Monitor Dressing. Change prior to discharge. Bowel Regimen. Dispo: SNF vs. [facility] pending progress with PT/OT Subjective Subjective Date/Time Seen: 06/29/22 10:13 Post Op day: 1 Interval history: POD #1: INSERTION TROCHANTERIC NATALIE RIGHT HIP Patient doing well. Pain well controlled. No concerns today. Review of Systems Review of Systems: All systems reviewed & are unremarkable except as noted in HPI and below Constitutional: Constitutional: Denies chills, Denies fever(s), Denies headache(s), Denies lethargy and Reports weakness ENT: Denies headache(s) Cardiovascular: Cardiovascular: Denies chest pain, Denies diaphoresis, Denies lightheadedness, Denies palpitations, Denies dyspnea and Denies dyspnea on exertion Respiratory: Respiratory: Denies cough, Denies dyspnea and Denies dyspnea on exertion Gastrointestinal: Gastrointestinal: Denies constipation, Denies diarrhea, Denies nausea and Denies vomiting Genitourinary: Genitourinary: Reports urinary frequency, Denies dysuria and Denies urinary hesitancy Musculoskeletal: Musculoskeletal: Reports joint swelling (Right Hip ) and Reports limited range of motion (Right Hip due to recent surgery ) Neurologic: Denies headache(s) and Reports weakness Endocrine: Endocrine: Denies palpitations Exam Const: General: comfortable and no acute distress Resp: Effort & Inspection: normal respiratory effort Cardio: Rate: regular rate Rhythm: regular rhythm GI: Inspection: non-distended Skin: General skin exam: normal color Other: Incision right hip c/d/i. Surrounding tissue without redness/warmth. Mild swelling consistent with recent surgery. No drainage. Neuro: Cognition (Neuro): normal cognition Speech: normal speech Extrem: Right lower extremity: normal to inspection, normal capillary refill, hip/thigh Details: tenderness Location: of the hip (Thigh soft ) Location: laterally and anteriorly, swelling Location: at the hip, abnormal ROM (limited consistent with recent surgery ) Details: pain with active ROM during and pain with passive ROM during and other (Incision c/d/i. ); no deformity and no unusual warmth, knee Details: normal to inspection; no tenderness and no swelling, lower leg (Negative Lauren's Sign ) Details: normal to inspection and no edema; no tenderness, ankle (+ankle dorsiflexion/plantarflexion) Details: normal to inspection and no edema; no tenderness, no swelling and no ecchymosis and foot Details: normal capillary refill, toes with normal ROM, vascular exam Details: dorsalis pedis pulse present and motor-sensory exam Details: light-touch normal; no tenderness Objective Data Vital Signs Vital Signs: Vital Signs - 24 hr 06/28/22 13:54 06/28/22 16:30 06/28/22 18:59 Temperature 36.6 C 36.3 C L 37.2 C Pulse Rate 74 66 72 Respiratory Rate 16 16 15 Blood Pressure 122/51 L 138/56 L 149/103 H Pulse Oximetry 98 98 100 Oxygen Delivery Nasal Cannula Oxygen Flow Rate 2 06/28/22 19:12 06/28/22 19:25 06/28/22 19:40 Temperature Pulse Rate 78 81 69 Respiratory Rate 16 17 16 Blood Pressure 173/88 H 169/74 H 162/86 H Pulse Oximetry 100 92 96 Oxygen Delivery Simple Face Mask Room Air Nasal Cannula Oxygen Flow Rate 6 2 06/28/22 19:55 06/28/22 20:10 06/28/22 20:28 Temperature 36.6 C Pulse Rate 66 70 79 Respiratory Rate 15 20 16 Blood Pressure 164/69 H 152/76 H 151/72 H Pulse Oximetry 100 97 98 Oxygen Delivery Nasal Cannula Nasal Cannula Oxygen Flow Rate 2 6 06/28/22 20:58 06/28/22 21:58 06/28
--- NOTE | 2022-06-29 14:30 | PM.IMPN ---
Progress Note: A&P Assessment and Plan (1) Closed intertrochanteric fracture of right femur: Code(s): S72.141A - Displaced intertrochanteric fracture of right femur, initial encounter for closed fracture Status: Acute Assessment and Plan: secondary to mechanical fall. Hip/pelvis x-ray showed nondisplaced right femoral intertrochanteric fracture. She has been seen in consultation by Orthopedic surgery Postoperative day 1 insertion of right hip trochanteric daniel by Dr. Ca. fall precautions implemented appreciate PT/OT eval planning for SNF on discharge continue Savage catheter until increased mobility (2) Asthma: Qualifiers: Asthma severity: mild Asthma persistence: persistent Asthma complication type: uncomplicated Qualified Code(s): J45.30 - Mild persistent asthma, uncomplicated Code(s): J45.909 - Unspecified asthma, uncomplicated Status: Acute Assessment and Plan: no acute issues at this time, not in acute exacerbation albuterol inhaler as needed (3) Osteoporosis: Code(s): M81.0 - Age-related osteoporosis without current pathological fracture Status: Acute Assessment and Plan: likely contributing to fracture Continue vitamin-D supplementation Outpatient follow-up following discharge for DEXA scan (4) Hiatal hernia with GERD without esophagitis: Code(s): K44.9 - Diaphragmatic hernia without obstruction or gangrene; K21.9 - Gastro-esophageal reflux disease without esophagitis Status: Acute Assessment and Plan: no issues continue p.o. Pepcid Subjective Date/time seen: 06/29/22 14:30 Interval history: date of service: 06/29/2022 Oralia Kenny is a 76-year-old female with a history of asthma and primary hyperparathyroidism who is seen in follow-up for right hip fracture s/p surgical repair on 06/28/2022. She tolerated the procedure well. She states she is doing much better today. She was able to get out of bed this morning and his it to a chair. She has now been sitting up in the chair for about 45 minutes and feels comfortable. She does have some soreness on her buttocks due to lying in bed. She states that her right hip pain is currently 3-4/10. Pain increases to 7/10 with any movement. She has no issues with her Savage catheter today. She states her last bowel movement was 3 days ago. her appetite has been good. She denies shortness breath, cough, or chest pain. Review of Systems Review of Systems: All systems reviewed & are unremarkable except as noted in HPI and below Exam Narrative: General: Well-nourished, well-appearing 76-year-old female, sitting up in bed, comfortable, NARD Neuro: awake, alert and oriented x4, speech clear, no focal neuro deficits noted HEENMT: normocephalic, atraumatic, EOMI, sclerae anicteric Respiratory: clear to auscultation bilaterally, nonlabored breathing Cardio: regular rate, regular rhythm with S1-S2 Abdomen: nondistended, normoactive bowel sounds, soft, nontender to palpation : Savage catheter patent draining straw-colored urine Extremities: right hip incision covered with bandage that is clean and dry, right hip nontender to palpation, bilateral lower extremities without edema, erythema, or tenderness to palpation, DP pulses 2+ bilaterally Skin: no rashes or lesions, warm and dry Psych: appropriate mood and affect, judgment and insight intact Objective Data Vital Signs Vital Signs: Vital Signs - 24 hr 06/28/22 16:30 06/28/22 18:59 06/28/22 19:12 Temperature 97.3 F L 98.9 F Pulse Rate 66 72 78 Respiratory Rate 16 15 16 Blood Pressure 138/56 L 149/103 H 173/88 H Pulse Oximetry 98 100 100 Oxygen Delivery Nasal Cannula Simple Face Mask Oxygen Flow Rate 2 6 06/28/22 19:25 06/28/22 19:40 06/28/22 19:55 Temperature Pulse Rate 81 69 66 Respiratory Rate 17 16 15 Blood Pressure 169/74 H 162/86 H 164/69 H Pulse Oximet
[2022-06-29] MEDS: RIVAROXABAN 10 MG TABLET PO (18:54)
[2022-06-29] MEDS: MONTELUKAST SODIUM 10 MG TABLET BY MOUTH (23:04)
[2022-06-30 05:55] LABS: Hematocrit 39.6 % (37.0-47.0); Mean Corpuscular HGB Conc 30.3 g/dl (32-36); Mean Corpuscular Hemoglobin 31.1 pg (26-34); Mean Corpuscular Volume 102.6 fl (80-100); Mean Platelet Volume 10.5 fl (7.4-10.4); Platelet Count Result 181 k/mm3 (150-375); Red Blood Count 3.86 M/mm3 (4.2-5.4); Red Cell Distribution Width 13.8 % (11.5-14.5); White Blood Count 9.6 K/mm3 (4.5-10.0)
[2022-06-30 05:58] VITALS: BP 148/70; PULSE 80; RESP 20; TEMP 36.2; O2SAT 93
[2022-06-30 06:28] LABS: Anion Gap 10 mmol/L (8-16); Blood Urea Nitrogen 17 mg/dL (7-17); Calcium 8.2 mg/dL (8.4-10.2); Carbon Dioxide 30 mmol/L (22-30); Chloride 99 mmol/L (98-107); Estimated CRCL calculation 72 ml/min; Estimated Glomerular Filt Rate > 60; Glucose 100 mg/dL (65-110); Potassium 3.6 mmol/L (3.4-5.0); Sodium 139 mmol/L (137-145)
[2022-06-30] MEDS: FLUTICASONE PROPIONATE 0.05% NA SPR 16 GM BTL (*BKC) 1 SPRAY NASAL (09:16)
[2022-06-30] MEDS: CHOLECALCIFEROL 1,000 UNITS TABLET 2000 UNITS PO (09:18)
[2022-06-30] MEDS: FAMOTIDINE 20 MG TABLET PO (09:18)
[2022-06-30] MEDS: polyethylene glycoL 3350 17 GM POWD.PACK PO (09:18)
[2022-06-30] MEDS: CELECOXIB 200 MG CAPSULE PO (09:18)
[2022-06-30] MEDS: hydrOXYzine pamoate 25 MG CAPSULE 50 MG PO ×2 (09:18→21:01)
[2022-06-30] MEDS: SENNA/DOCUSATE SODIUM TABLET 2 TAB PO ×2 (09:18→16:22)
[2022-06-30] MEDS: HYDROcodone/acetaminophen (*CRX) 7.5-325 MG TABLET 1 TAB PO ×2 (09:19→21:01)
--- NOTE | 2022-06-30 12:55 | PM.IMPN ---
Progress Note: A&P Assessment and Plan (1) Closed intertrochanteric fracture of right femur: Code(s): S72.141A - Displaced intertrochanteric fracture of right femur, initial encounter for closed fracture Status: Acute Assessment and Plan: secondary to mechanical fall. Hip/pelvis x-ray showed nondisplaced right femoral intertrochanteric fracture. She has been seen in consultation by Orthopedic surgery Postoperative day 2 insertion of right hip trochanteric daniel by Dr. Ca. fall precautions implemented appreciate PT/OT eval planning for SNF on discharge Supportive care. Analgesics available as needed (2) Asthma: Qualifiers: Asthma severity: mild Asthma persistence: persistent Asthma complication type: uncomplicated Qualified Code(s): J45.30 - Mild persistent asthma, uncomplicated Code(s): J45.909 - Unspecified asthma, uncomplicated Status: Acute Assessment and Plan: no acute issues at this time, not in acute exacerbation albuterol inhaler as needed (3) Osteoporosis: Code(s): M81.0 - Age-related osteoporosis without current pathological fracture Status: Acute Assessment and Plan: likely contributing to fracture Continue vitamin-D supplementation Outpatient follow-up for DEXA scan (4) Hiatal hernia with GERD without esophagitis: Code(s): K44.9 - Diaphragmatic hernia without obstruction or gangrene; K21.9 - Gastro-esophageal reflux disease without esophagitis Status: Acute Assessment and Plan: no issues continue p.o. Pepcid Subjective Date/time seen: 06/30/22 12:55 Interval history: date of service: 06/29/2022 Oralia Kenny is a 76-year-old female with a history of asthma and primary hyperparathyroidism who is seen in follow-up for right hip fracture s/p surgical repair on 06/28/2022. She states she is doing better today. Her pain has improved. When she is resting she has no pain. Today with therapy while moving around her pain increased to 7/10. Her Savage was removed and she has been able to void independently. She denies dysuria. No hematuria. Last bowel movement was several days ago, she feels like she needs to go today and states she has been passing gas. Tolerating her diet. Denies shortness breath, cough, chest pain. She has no additional concerns at this time. Review of Systems Review of Systems: All systems reviewed & are unremarkable except as noted in HPI and below Exam Narrative: General: Well-nourished, well-appearing 76-year-old female, sitting up in bed, comfortable, NARD Neuro: awake, alert and oriented x4, speech clear, no focal neuro deficits noted HEENMT: normocephalic, atraumatic, EOMI, sclerae anicteric Respiratory: clear to auscultation bilaterally, nonlabored breathing Cardio: regular rate, regular rhythm with S1-S2 Abdomen: nondistended, normoactive bowel sounds, soft, nontender to palpation Extremities: right hip incision covered with bandage that is clean and dry, right hip nontender to palpation, bilateral lower extremities without edema, erythema, or tenderness to palpation, DP pulses 2+ bilaterally Skin: no rashes or lesions, warm and dry Psych: appropriate mood and affect, judgment and insight intact Objective Data Vital Signs Vital Signs: Vital Signs - 24 hr 06/29/22 13:58 06/29/22 17:58 06/29/22 22:00 Temperature 97.5 F L 97.6 F 97.6 F Pulse Rate 75 68 74 Respiratory Rate 22 H 22 H 20 Blood Pressure 111/66 123/56 L 118/56 L Pulse Oximetry 96 95 93 Oxygen Delivery 06/29/22 20:00 06/30/22 05:58 Temperature 97.2 F L Pulse Rate 74 80 Respiratory Rate 20 20 Blood Pressure 148/70 H Pulse Oximetry 93 93 Oxygen Delivery Room Air Intake/Output Intake/Output: Intake & Output 06/27/22 06/28/22 06/29/22 06/30/22 23:59 23:59 23:59 23:59 Intake Total 2560 2640 2410 390 Output Total 625 2150 900 Balance 0366 795 8796 3
[2022-06-30 14:00] VITALS: BP 111/54; PULSE 83; RESP 20; TEMP 36.4; O2SAT 95
[2022-06-30] MEDS: RIVAROXABAN 10 MG TABLET PO (16:22)
--- NOTE | 2022-06-30 16:37 | PM.PNORT ---
Progress Note: A&P Assessment and Plan (1) Closed intertrochanteric fracture of right femur: Code(s): S72.141A - Displaced intertrochanteric fracture of right femur, initial encounter for closed fracture Status: Acute Plan POD 2 DOING WELL. SHE WILL PLAN FOR SNF ONCE STABLE FOR DISCHARGE PER MEDICINE. SHE WILL F/U IN 6 WEEKS. Subjective Subjective Date/Time Seen: 06/30/22 16:37 POD 2 DOING WELL. SLOW PROGRESS WITH PT. NO CALF PAIN Exam Extrem: Other: VSS AFEBRILE DRESSING DRY NV INTACT NEG HOMANS SIGN CALF SOFT NON TENDER. Objective Data Vital Signs Vital Signs: Vital Signs - 24 hr 06/29/22 17:58 06/29/22 22:00 06/29/22 20:00 Temperature 36.4 C 36.4 C Pulse Rate 68 74 74 Respiratory Rate 22 H 20 20 Blood Pressure 123/56 L 118/56 L Pulse Oximetry 95 93 93 Oxygen Delivery Room Air 06/30/22 05:58 06/30/22 14:00 Temperature 36.2 C L 36.4 C L Pulse Rate 80 83 Respiratory Rate 20 20 Blood Pressure 148/70 H 111/54 L Pulse Oximetry 93 95 Oxygen Delivery Intake/Output Intake/Output: Intake & Output 06/27/22 06/28/22 06/29/22 06/30/22 23:59 23:59 23:59 23:59 Intake Total 2560 2640 2410 690 Output Total 625 2150 900 Balance 2978 528 7634 690 Meds/Results Medications: Active Medications Generic Name Dose Route Start Last Admin Trade Name Freq PRN Reason Stop Dose Admin Acetaminophen 650 mg 06/28/22 20:13 Acetaminophen 325 Mg Tablet PO Q6H PRN Mild Pain (1-3) or Fever Hydrocodone Bitart/Acetaminophen 1 tab 06/28/22 20:13 06/30/22 09:19 Hydrocodone/Acetaminophen (*Crx) 7.5-325 Mg Tablet PO 1 tab Q3H PRN Administration Pain Rated 4-6 Albuterol 1.25 mg 06/28/22 07:49 06/28/22 09:07 Albuterol Sulfate Neb 2.5 Mg/3 Ml Inh INHALATION 1.25 mg Q4HRT PRN Administration Wheezing Celecoxib 200 mg 06/29/22 08:00 06/30/22 09:18 Celecoxib 200 Mg Capsule PO 200 mg DAILY@0800 [facility] Administration Diazepam 5 mg 06/28/22 20:13 Diazepam (*Crx) 5 Mg Tablet PO Q8H PRN Muscle Spasm Famotidine 20 mg 06/27/22 13:00 06/30/22 09:18 Famotidine 20 Mg Tablet PO 20 mg DAILY SHELL Administration Fluticasone Propionate 1 spray 06/27/22 13:00 06/30/22 09:16 Fluticasone Propionate 0.05% Na Spr 16 Gm Btl (*Bkc) NASAL 1 spray DAILY SHELL Administration Hydroxyzine Pamoate 50 mg 06/28/22 20:13 06/30/22 09:18 Hydroxyzine Pamoate 25 Mg Capsule PO 50 mg Q4H PRN Administration Itching Montelukast Sodium 10 mg 06/27/22 21:00 06/29/22 23:04 Montelukast Sodium 10 Mg Tablet BY MOUTH 10 mg HS [facility] Administration Morphine Sulfate 3 mg 06/28/22 20:13 06/29/22 22:59 Morphine Sulfate (*Crx) 4 Mg/Ml Inj IV PUSH 3 mg Q3H PRN Administration Pain Rated 7-10 Naloxone HCl 0.1 mg 06/28/22 20:13 Naloxone Hcl 0.4 Mg/Ml Vial IV PUSH Q2M PRN Opiate Reversal Ondansetron HCl 4 mg 06/28/22 20:13 Ondansetron Inj 4 Mg/2 Ml Vial IV PUSH Q4H PRN Nausea And Vomiting Polyethylene Glycol 17 gm 06/29/22 09:00 06/30/22 09:18 Polyethylene Glycol 3350 17 Gm Powd.Pack PO 17 gm QAM SHELL Administration Rivaroxaban 10 mg 06/29/22 17:00 06/30/22 16:22 Rivaroxaban 10 Mg Tablet PO 10 mg DAILY@17 [facility] Administration Senna/Docusate Sodium 2 tab 06/28/22 20:15 06/30/22 16:22 Senna/Docusate Sodium Tablet PO 2 tab BID [facility] Administration Vitamin D 2,000 units 06/27/22 13:00 06/30/22 09:18 Cholecalciferol 1,000 Units Tablet PO 2,000 units DAILY SHELL Administration Radiology Results: ITS Impressions Knee X-Ray 06/27/22 08:41 Impression: 1: No acute fracture. Hip/Pelvis X-Ray 06/27/22 08:49 Impression: 1: Nondisplaced right femoral intertrochanteric fracture. Intraoperative X-Ray 06/28/22 21:10 IMPRESSION: 1. Essentially anatomic alignment post open reduction internal fixation of an intratrochanteric fracture
[2022-06-30] MEDS: MONTELUKAST SODIUM 10 MG TABLET BY MOUTH (20:44)
[2022-06-30 21:01] VITALS: BP 131/67; PULSE 82; RESP 16; TEMP 37; O2SAT 92
[2022-07-01 06:00] VITALS: BP 126/67; PULSE 76; RESP 16; TEMP 36.7; O2SAT 92
[2022-07-01] MEDS: CELECOXIB 200 MG CAPSULE PO (07:51)
[2022-07-01] MEDS: SENNA/DOCUSATE SODIUM TABLET 2 TAB PO (07:51)
[2022-07-01] MEDS: CHOLECALCIFEROL 1,000 UNITS TABLET 2000 UNITS PO (07:51)
[2022-07-01] MEDS: polyethylene glycoL 3350 17 GM POWD.PACK PO (07:52)
[2022-07-01] MEDS: FAMOTIDINE 20 MG TABLET PO (07:52)
[2022-07-01] MEDS: FLUTICASONE PROPIONATE 0.05% NA SPR 16 GM BTL (*BKC) 1 SPRAY NASAL (07:52)
[2022-07-01 08:00] VITALS: O2SAT 95
[2022-07-01] MEDS: ACETAMINOPHEN 325 MG TABLET 650 MG PO ×2 (09:18→14:12)
[2022-07-01] MEDS: HYDROcodone/acetaminophen (*CRX) 5-325 MG TABLET 1 TAB PO (10:31)
--- NOTE | 2022-07-01 11:49 | PM.DS ---
DS: Admitting Diagnosis Discharge Date 07/01/2022 Admitting Diagnosis right hip fracture DS: Discharge Diagnosis Discharge Diagnosis (1) Closed intertrochanteric fracture of right femur: Code(s): S72.141A - Displaced intertrochanteric fracture of right femur, initial encounter for closed fracture Status: Acute Assessment and Plan: secondary to mechanical fall. Hip/pelvis x-ray showed nondisplaced right femoral intertrochanteric fracture. She has been seen in consultation by Orthopedic surgery Underwent insertion of right hip trochanteric daniel by Dr. Ca on 06/28/2022. Tolerated procedure well fall precautions PT/OT eval during admissions. Will continue therapy at SNF supportive care provided. Analgesics available as needed Xarelto for DVT prophylaxis x28 days per Orthopedic surgery recommendations. Discussed anticoagulation precautions with patient who was agreeable to proceed Outpatient follow-up with orthopedic surgery in 6 weeks (2) Asthma: Qualifiers: Asthma severity: mild Asthma persistence: persistent Asthma complication type: uncomplicated Qualified Code(s): J45.30 - Mild persistent asthma, uncomplicated Code(s): J45.909 - Unspecified asthma, uncomplicated Status: Acute Assessment and Plan: No acute issues. Not in acute exacerbation. Albuterol inhaler as needed (3) Osteoporosis: Code(s): M81.0 - Age-related osteoporosis without current pathological fracture Status: Acute Assessment and Plan: likely contributing to fracture. Continue vitamin-D supplementation.Outpatient follow-up for DEXA scan (4) Hiatal hernia with GERD without esophagitis: Code(s): K44.9 - Diaphragmatic hernia without obstruction or gangrene; K21.9 - Gastro-esophageal reflux disease without esophagitis Status: Acute Assessment and Plan: No issues. Continue p.o. Pepcid DS: Summary Hospital Course Hospital Course: date of admission: 06/26/2022 date of discharge: 07/01/2022 Oralia Kenny is a 76-year-old female with a history of asthma and primary hyperparathyroidism who presented to the emergency department on 06/26/2022 with complaints of right hip pain after falling in her home while walking in flip-flops. On presentation to the ED, her vital signs were stable, she was afebrile, white blood cell count 10.3, additional laboratory workup unremarkable, hip/pelvis x-ray showed nondisplaced right femoral intertrochanteric fracture. She was admitted to the hospitalist service for further evaluation and management was seen in consultation by Orthopedic surgery. Please see above for further details. She underwent surgical repair and tolerated this well. She was making good progress with therapy following surgery. She will continue therapy at SNF following discharge and follow-up with orthopedic surgery in 6 weeks. Given patient's overall improvement, she was determined to no longer require inpatient care and was discharged in hemodynamically stable condition on 07/01/2022. Discussed with the patient worrisome signs and symptoms for which to return and she was educated on her medications. Patient comfortable with discharge plans. Status at Discharge Overall status at discharge: patient is progressing back to baseline Time Spent with Patient Time attestation: Total time spent providing and/or coordinating discharge services: 40 minutes Time spent: Greater than 30 minutes Exam Narrative: General: Well-nourished, well-appearing 76-year-old female, sitting up in bed, comfortable, NARD Neuro: awake, alert and oriented x4, speech clear, no focal neuro deficits noted HEENMT: normocephalic, atraumatic, EOMI, sclerae anicteric Respiratory: clear to auscultation bilaterally, nonlabored breathing Cardio: regular rate, regular rhythm with S1-S2 Abdomen: nondistended, normoactive bowel sounds, soft, nontender to palpation Extremitie
[2022-07-01 12:34] LABS: EDCOVIDSCREEN Negative (Negative)
--- NOTE | 2022-07-01 12:58 | PC.NURSE ---
Shanta BRYANT called receiving Facility, [facility], at 1250 and provided report. Patient's family will picking supervisor patient around 1500.
[2022-07-01 13:43] VITALS: BP 130/67; PULSE 71; RESP 18; TEMP 36.3; O2SAT 95
--- NOTE | 2022-07-01 14:03 | PC.NURSE ---
On 07/01/22, the student, Nathaniel Hernandez [facility], provided care and completed [facility] documentation on this patient. I have reviewed the student's documentation and agree with the findings.
== END 2022-07-01 15:33 | DRG 482 ==
LOC: ANHED 06-27 00:58 → ANH3MEDSUR 06-27 03:29
PROVIDERS: Nurse Practitioner Adult Health; Orthopaedic Surgery; Physician Assistant; Admitting Provider Internal Medicine; Emergency Provider Emergency Medicine; PCP Family Medicine; Visit Provider Family Medicine
PROC: 0QS634Z Reposition Right Upper Femur with Internal Fixation Device, Percutaneous Approach (ICD-10-PCS; CPT 27245; principal; 2022-06-28 17:00)
DX: S72.141A Displaced intertrochanteric fracture of right femur, initial encounter for closed fracture (principal); W01.0XXA Fall on same level from slipping, tripping and stumbling without subsequent striking against object, initial encounter; J45.30 Mild persistent asthma, uncomplicated; K21.9 Gastro-esophageal reflux disease without esophagitis; K44.9 Diaphragmatic hernia without obstruction or gangrene; M81.0 Age-related osteoporosis without current pathological fracture; Z20.822 Contact with and (suspected) exposure to COVID-19; Z28.21 Immunization not carried out because of patient refusal; Z79.899 Other long term (current) drug therapy; Z87.891 Personal history of nicotine dependence
CPT/HCPCS: 36415; 73502; 73562; 80048; 80053; 81001; 83735; 85025; 85027; 86850; 86900; 86901; 87426; 94640; 96374; 96375; 97110; 97116; 97161; 97165; 97530; 97535; 99199; 99285; A9270; C1713; C9113; C9803; J0690; J0780; J1100; J1170; J2270; J2405; J2704; J3010; J7030; J7120; U0003; U0005

== ENCOUNTER 2023-02-16 14:06 | Outpatient (CLI) | payer OTHER, SELFPAY ==
--- NOTE | ~2023-02-16 | CT_ITS ---
EXAMINATION:CT diagnostic chest wo con DATE: 02/16/2023 14:29 INDICATION: Other nonspecific abnormal findings of the lung field. TECHNIQUE: Computed tomography (CT) of the chest was performed without intravenous contrast. Automate d exposure control and iterative reconstruction technique were employed. The dose-length product (DLP ) was 101.07 mGy-cm. COMPARISON: Chest CT 02/18/2022 FINDINGS: There is mild emphysema. There are scattered centrilobular nodules and tree-in-bud opacitie s involving all lobes, consistent with chronic infection. There is a new 2.2 cm nodule in left lower lobe. No pleural effusion. The heart size is normal. There are coronary artery calcifications. There is a small pericardial effusion. There is a small sliding hiatal hernia. There are bilateral breast i mplants. There is mild thoracic spondylosis. There are benign bone islands in the spine. IMPRESSION: 1. Lung-RADS category 4B: Very suspicious. CT-guided biopsy of the left lower lobe nodule is recommen ded. Reviewed, dictated and finalized at location A. IMPRESSION: 1. Lung-RADS category 4B: Very suspicious. CT-guided biopsy of the left lower l obe nodule is recommended.
== END 2023-02-16 14:07 | disposition home or self-care (01) ==
PROVIDERS: PCP Family Medicine; Visit Provider Physician Assistant
DX: R91.8 Other nonspecific abnormal finding of lung field (principal); Z87.891 Personal history of nicotine dependence
CPT/HCPCS: 71250

== ENCOUNTER 2023-02-24 09:17 | Outpatient (CLI) | payer OTHER, SELFPAY ==
[2023-02-22 09:24] VITALS: BMI 31.1
--- NOTE | 2023-02-22 09:25 | PC.NURSE ---
Pre Radiology instructions Report to the outpatient anibal gusman on date __02/24/23___ at time ___929____ for procedure Time: __1130__ YOU MAY BE MONITORED AT HOSPITAL FOR UP TO 4 HOURS AFTER YOUR PROCEDURE. A visitor will be allowed to accompany the patient into the hospital. You and your visitor will be asked to self-screen and do not enter if you have any COVID symptoms. A mask is OPTIONAL within the hospital. Patients are to have no food or drink 6 hours prior to procedure time (0530 AM) Driving will be restricted after the procedure, you must have a person to drive you home. Labs will be drawn in preop area and once reviewed, you will be taken to radiology area for procedure. When the procedure is completed, you will be taken to outpatient where you will be monitored for several hours. You may have one visitor in this area. Other than holding anti-coagulants, patient may take other medication(s) as scheduled. Prior to your appointment date patients are instructed to hold anti-coagulants after discussing with ordering provider to stop. If unable to discontinue anti-coagulants please notify radiologist. ? No aspirin or warfarin (Coumadin) for 7 days prior to the procedure. ? No clopidogrel (Plavix), ticagrelor (Brilinta), prasugrel (Effient) or dabigatran (Pradaxa) for 5 days prior to the procedure. ? No rivaroxaban (Xarelto), apixaban (Eliquis), dipyridamole (Aggrenox or Persantine) or cilostazol (Pletal) for 2 days prior to the procedure. Medications to discontinue per physician: ___N/A Date to take last dose: Please leave all valuables, including medications, at home the day of procedure. The hospital will not accept responsibility for valuables. Wear comfortable, loose fitting clothing.? Follow any additional instructions given to you from ordering provider. Telephone instructions given to ____PATIENT and asked if any additional questions and then verbalized understanding. Patient advised to call scheduling provider office or registration scheduling [phone] if any additional questions.
[2023-02-24] VITALS (10 sets, daily range): BP systolic 115–152; BP diastolic 58–69; PULSE 56–70; RESP 16; TEMP 36.9; O2SAT 93–100
--- NOTE | ~2023-02-24 | XR_ITS ---
EXAMINATION: XR chest 1V DATE: 02/24/2023 11:56 INDICATION: Status post percutaneous left lung biopsy TECHNIQUE: frontal view of the chest was obtained. COMPARISON: CT dated 02/16/2023 FINDINGS: Again seen is a mass in the left lower lobe projecting over the left midlung zone which is concerning for primary bronchogenic carcinoma. Minimal linear discoid atelectasis at the medial left lung base. Subtle opacities at the lateral right mid and lower lung zones consistent with atelectasis and chron ic infection respectively. No pneumothorax or pleural effusion. The cardiomediastinal silhouette is n ormal. Capsular calcification associated with bilateral breast implants. IMPRESSION: 1. No pneumothorax or other acute cardiopulmonary disease post percutaneous biopsy of a left lower lo be mass. Reviewed, dictated and finalized at location A. IMPRESSION: 1. No pneumothorax or other acute cardiopulmonary disease post percutaneous bio psy of a left lower lobe mass.
--- NOTE | ~2023-02-24 | CT_ITS ---
EXAMINATION: CT biopsy lung w/imaging DATE: 02/24/2023 11:57 INDICATION: Solitary pulmonary nodule TECHNIQUE: The procedure including the risks and benefits was discussed with the patient. Risks discu ssed included infection, approximately 1/20 risk of symptomatic hemorrhage beyond mild hemoptysis, ap proximately 1/3 risk of pneumothorax, and approximately 1/10 risk of pneumothorax severe enough to wa rrant chest tube placement. The patient understood the risks and agreed to proceed. The patient was p laced prone. The skin overlying the posterior inferior left hemithorax was prepped and draped in donald rile fashion. Anesthetic was administered with 1% lidocaine subcutaneously. A 19 gauge outer needle was advanced under CT guidance to the lesion of interest. A 20 gauge core biopsy needle was then use d to obtain 4 core biopsy specimens. The needle was removed and the entry site was cleaned and dresse d. There were no immediate complications. The dose-length product was 191.60 mGy-cm. FINDINGS: CT images demonstrate the outer needle tip adjacent to a 2.3 x 1.7 cm nodule in the left lo wer lobe. Mild discoid atelectasis in the bilateral lower lobes. Small region of chronic tree-in-bud opacity in the right upper and middle lobes likely sequela of prior infection. Rim calcified bilatera l breast implants. IMPRESSION: 1. Successful CT-guided biopsy of a 2.3 x 1.7 cm left lower lobe mass concerning for primary bronchog enic carcinoma.. Reviewed, dictated and finalized at location A. IMPRESSION: 1. Successful CT-guided biopsy of a 2.3 x 1.7 cm left lower lobe mass concernin g for primary bronchogenic carcinoma..
--- NOTE | ~2023-02-24 | XR_ITS ---
EXAMINATION: XR chest 1V portable DATE: 02/24/2023 15:11 INDICATION: Status post percutaneous left lung biopsy TECHNIQUE: frontal view of the chest was obtained. COMPARISON: Chest radiograph dated 02/24/2023 at 12:59 PM FINDINGS: Again seen is a left lower lobe mass projecting over the left midlung zone. Unchanged mild atelectasi s at the bilateral lower lung zones and several chronic opacity at the right midlung zone likely rela merlin to chronic infection. No new airspace opacities, pulmonary edema, pleural effusion or pneumothora x. The cardiomediastinal silhouette is normal. Capsule calcific a cyst associated with bilateral lilliana st implants. IMPRESSION: 1. No pneumothorax or other acute cardiac pulmonary disease post percutaneous biopsy of a left lower lobe mass concerning for primary bronchogenic carcinoma. Reviewed, dictated and finalized at location A. IMPRESSION: 1. No pneumothorax or other acute cardiac pulmonary disease post percutaneous b iopsy of a left lower lobe mass concerning for primary bronchogenic carcinoma.
--- NOTE | ~2023-02-24 | XR_ITS ---
EXAMINATION: XR chest 1V portable DATE: 02/24/2023 13:04 INDICATION: Status post percutaneous left lung biopsy TECHNIQUE: frontal view of the chest was obtained. COMPARISON: Chest radiograph dated 02/24/2023 at 11:54 AM FINDINGS: Again seen is left lower lobe mass projecting over the left midlung zone. Also unchanged is mild atel ectasis in bilateral lower lung zones and subtle opacity lateral right midlung zone which likely sequ keith of chronic infection. No new airspace opacities, pulmonary edema, pleural effusion or pneumothora x. The cardiomediastinal silhouette is normal. Increased density project over the lower lungs seconda ry to capsular calcification associated with bilateral breast implants. IMPRESSION: 1. No pneumothorax or other acute cardiopulmonary disease post exchange biopsy of a left lower lobe m ass concerning for primary bronchogenic carcinoma. Reviewed, dictated and finalized at location A. IMPRESSION: 1. No pneumothorax or other acute cardiopulmonary disease post exchange biopsy of a left lower lobe mass concerning for primary bronchogenic carcinoma.
[2023-02-24 10:13] LABS: Platelet Count Result 278 k/mm3 (150-375)
[2023-02-24 10:25] LABS: INR 0.9; Prothrombin Time 12.9 Seconds (11.1-14.7)
--- NOTE | 2023-02-24 15:44 | SUR.PHASEII ---
Vitals are stable. Dr. Gtz came to the bedside and talked to patient before discharge. She is dressed and waiting for her ride at this time.
== END 2023-02-24 15:52 | disposition home or self-care (01) ==
PROVIDERS: PCP Family Medicine; Referring Provider Physician Assistant; Visit Provider Radiology Diagnostic Radiology
PROC: BB24ZZZ Computerized Tomography (CT Scan) of Bilateral Lungs (ICD-10-PCS; CPT 32408; principal; 2023-02-24 11:30)
DX: R91.1 Solitary pulmonary nodule (principal); C34.92 Malignant neoplasm of unspecified part of left bronchus or lung
CPT/HCPCS: 32408; 36415; 71045; 81210; 81235; 81276; 85049; 85610; 88271; 88274; 88275; 88305; 88360; 88381

== ENCOUNTER 2023-03-16 15:55 | Outpatient (CLI) | payer OTHER, SELFPAY ==
--- NOTE | 2023-03-16 10:06 | ECHO_ITS ---
Patient Info Name: Oralia Kenny Age: 77 years : 1945 Gender: Female Accession #: $[id number]$ Ht: 62 in Wt: 169 lbs BSA: 1.86 m2 HR: 61 bpm BP: 142 / 85 mmHg Heart Rhythm: Sinus Rhythm Technical Quality: Good Exam Date: 03/16/2023 10:14 AM Exam Location: [facility] Pulmonary Staff Ordering Physician: FRANCISCO RYAN MD Electroencephalograph Technologist: Kylee Saldivar RDCS Referring Physician: FRANCISCO RYAN MD; Exam Type: CA echo doppler color flow Study Info Indications I31.3 - Pericardial effusion (noninflammatory) Complete two-dimensional, color flow and Doppler transthoracic echocardiogram is performed. Summary 1. Complete two-dimensional, color flow and Doppler transthoracic echocardiogram is performed. 2. Left ventricular chamber dimension is normal. 3. Left ventricular systolic function is normal, estimated at 55-60%. 4. There is mild concentric increased left ventricular wall thickness. 5. The left ventricular diastolic function is grade II diastolic dysfunction. 6. E/e' 11 is mildly elevated. 7. Left atrial chamber dimension is mildly enlarged. 8. There is trace mitral valve regurgitation. 9. No pulmonary hypertension, estimated pulmonary arterial systolic pressure is 32 mmHg. Left Ventricle E/e' 11 is mildly elevated. Left ventricular chamber dimension is normal. Left ventricular systolic function is normal, estimated at 55-60%. There is mild concentric increased left ventricular wall thickness. The left ventricular diastolic function is grade II diastolic dysfunction. Right Ventricle Right ventricular systolic function is normal and with normal TAPSE 1.9 cm. Right ventricular chamber dimension is normal. Left Atria Left atrial chamber dimension is mildly enlarged. Right Atria Right atrial chamber dimension is normal. Aortic Valve The aortic valve is trileaflet. There is no aortic valve stenosis. There is no aortic valve regurgitation. Pulmonic Valve There is no pulmonic regurgitation. Mitral Valve There is no mitral valve stenosis. There is trace mitral valve regurgitation. Tricuspid Valve There is no tricuspid valve regurgitation. No pulmonary hypertension, estimated pulmonary arterial systolic pressure is 32 mmHg. Pericardium/Pleural There is no pericardial effusion. Inferior Vena Cava Normal inferior vena cava with >50% collapse upon inspiration consistent with normal right atrial pressure, 5 mmHg. Aorta The aortic root size at the sinus of Valsalva is normal. Left Ventricular Outflow Tract Name Value Normal LVOT 2D LVOT Diameter 1.8 cm LVOT Doppler LVOT Peak Gradient 3 mmHg LVOT Mean Gradient 1 mmHg LVOT VTI 20 cm LVOT VTI/AV VTI Ratio 0.7 LVOT Stroke Volume 49 ml LVOT CO 2.8 l/min LVOT CI 1.5 l/min/m2 Pulmonic Valve Name Value Normal RVOT Doppler RV
--- NOTE | 2023-03-17 12:26 | PCCARD ---
Addendum entered by Key Crouch RDCS 03/17/23 13:19: DATE ENTERED INCORRECT. DOWNTIME 03/16/23 FROM 29 TO 1929 Original Note: Paper documentation exists on this patient due to [employer] downtime on 03/17/23 from Paper documentation exists on this patient due to [employer] downtime on 03/17/23 from to [] .29 to [] 1929.
--- NOTE | 2023-03-17 12:29 | PCCARD ---
Paper documentation exists on this patient due to [employer] System downtime on 03/16/23 from 0030 to []1930 .
== END 2023-03-16 15:56 | disposition home or self-care (01) ==
LOC: ANHCARD 15:56
PROVIDERS: PCP Family Medicine; Visit Provider Nurse Practitioner Family
DX: I31.39 Other pericardial effusion (noninflammatory) (principal); R93.1 Abnormal findings on diagnostic imaging of heart and coronary circulation
CPT/HCPCS: 93306